=== PATIENT | female | born 1990 | race Caucasian/White ===

== ENCOUNTER 2023-03-08 07:38 | Inpatient (IN) ==
[2023-03-08] MEDS ORDERED: LIDOCAINE 1% LOCAL 20 ML VIAL INFIL PRN (09:08)
[2023-03-08] MEDS ORDERED: OXYTOCIN 30 UNITS/500 ML BAG IV PRN ×2 (09:08)
[2023-03-08] MEDS: LACTATED RINGER'S 1,000 ML IV PRN ×2 (09:47→20:08)
[2023-03-08 09:52] LABS: Hematocrit (blood only) 33.3 % (37.0-47.0); Hemoglobin 11.2 g/dl (12.0-16.0); Mean Corpuscular Hemoglobin 28.3 pg (25.0-34.0); Mean Corpuscular Hgb Conc 33.6 g/dL (32.0-36.0); Mean Corpuscular Volume 84.1 fL (80.0-100.0); Mean Platelet Volume 10.6 fL (9.4-12.4); Platelet Count 256 K/uL (130-400); RDW Coefficient of Variation 14.6 % (11.5-14.5); RDW Standard Deviation 44.6 fL (36.4-46.3); Red Blood Count 3.96 M/uL (4.20-5.40); White Blood Count 12.34 K/ul (4.8-10.8)
--- NOTE | 2023-03-08 10:06 | History & Physical Report ---
Date of Service March 08, 2023 Assessment & Plan (1) Insulin controlled gestational diabetes mellitus (GDM) during : Plan 32 yo G1 at 39 3/7 wga presents for IOL for A2GDM VSS Fetus cat 1, not many accels but this has been consistent w/ her testing in the office Labor - 35cc bahena placed after verbal consent obtained. Will start pit as well A2GDM - plan BG q2, q1 in active labor GBS neg epidural prn Admission and Anticipated Discharge Date Admission Date: March 08, 2023 History of Present Illness Chief Complaint: IOL Primary Care Provider: Emy Michael MD 32 yo G1 at 39 3/7 wga w/ NATHALIE 03/12 by US presents for IOL for A2GDM. +FM; den ies regular ctx, LOF, VB PNI: A2GDM BMI > 40 Past [employer] Hx: G1 regular cycles denies hx STIs Allergies Allergy/AdvReac Type Severity Reaction Status Date / Time No Known Allergies Allergy Verified 03/07/23 09:47 Home Medications Medication Instructions Recorded Confirmed Type Saccharomyces boulardii 250 mg 10,000 mmu cells PO DAILY 03/16/22 03/07/23 History capsule (Digest Probiotic (S.boulardii)) cetirizine 10 mg tablet (Zyrtec) 10 mg PO DAILY PRN 03/16/22 03/07/23 History omega-3 900 mg-dha 360 mg-epa 455 cap PO 03/16/22 03/07/23 History mg-fish oil 1,000 mg capsule (Fish Oil) prenat.vits,antolin,[id number] 1 tab PO DAILY 08/07/22 03/07/23 History aspirin 81 mg tablet,delayed 81 mg PO DAILY 10/01/22 03/07/23 History release (Adult Low Dose Aspirin) blood sugar diagnostic (OneTouch #150 ea 10/15/22 03/07/23 Rx Verio test strips) blood-glucose meter (OneTouch #1 ea 10/15/22 03/07/23 Rx Verio Reflect Meter) lancets 33 gauge (OneTouch Delica #150 ea 10/15/22 03/07/23 Rx Lancets) acetone (urine) test (Ketone Urine #50 ea 10/17/22 03/07/23 Rx Test strips) insulin NPH isoph U-100 human 100 10 unit (0.1 mL) subcut QPM #15 mL 10/25/22 03/07/23 Rx unit/mL (3 mL) subcutaneous pen (Novolin N FlexPen) pen needle, diabetic 32 gauge x #50 ea 10/25/22 03/07/23 Rx 5/32" (BD Ultra-Fine Brionna Pen Needle) escitalopram oxalate 20 mg tablet 20 mg PO DAILY #90 tabs 12/25/22 03/07/23 Rx (Lexapro) amoxicillin 875 mg-potassium 1 tab PO BID 10 days #20 tabs 02/05/23 03/07/23 Rx clavulanate 125 mg tablet levothyroxine 88 mcg tablet 88 mcg PO .COMPLEX #45 tabs 03/06/23 03/07/23 Rx Patient History Medical History Anxiety and depression Surgical History S/P tonsillectomy [place] teeth removed Family History Grandmother (Maternal) Breast cancer Other Brain cancer Diabetes Hypertension Kidney disease Ovarian cancer Denies family history of Lung cancer Colorectal cancer Social History Smoking Status: Never smoker Second Hand Exposure: No; Do You Dip or Chew Tobacco: No; Hx Alcohol Use: No marital status: marital status details: Doron (35) [phone] Current Living Situation: Spouse Current Living Situation Comment: lives with spouse, cats, spouse to change litter current occupational status: employed 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, 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 caffeine: Yes Dental Care, Regularly: Yes Seatbelt Use: always Sunscreen Use: Yes Physical Exam Genitourinary: OB Exam Abdomen: + vertex (confirmed by bsus) and + estimated weight (7-8) Manual OB Exam: + cervical dilation 1 cm, + cervical effacement 20% and + station -2 OB Exam Monitor Tracing: + external FHT monitor used, + external uterine monitor used (irreg ctx) and + category I (150/mod/+accel/-decel) Results & Data Vital Signs (Past 12 Hours) Vital Signs Pulse BP 03/08/23 08:02 109 H 121/77 Laboratory Results OB Labs: Blood Type AB Positive 08/31/22 Antibody Screen NEGATIVE 08/31/22 Hemoglobin 11.1 g/dl (12.0-16.0) L 12/21/22 Hematocrit 33.8 % (37.0-47.0) L 12/21/22 Mean Corpuscular Volume 86.6 fL (80.0-100.0) 08/31/22 Platelet Count 260 K/uL (130-400) 08/31/22 Rubella IgG Antibody Immune (Immune) 08/31/22 Rapid Plasma Reagin Nonreactive (Nonreactive) 08/31/22 Hepatitis B Surface Antigen. NON-REACTIVE (NON-REACTIVE) 08/31/22 Hepatitis C Antibody (EIA) NON-REACTIVE (NON-REACTIVE) 08/31/22 HIV (1&2) Ag and Ab Confirmation NON-REACTIVE (NON-REACTIVE) 08/31/22 Glucose 1 Hour 50 gm Load 153 mg/dl (70-130) H 09/21/22 Maternal Serum Alpha Fetoprotein 22.5 ng/mL 09/21/22 OB Optional Labs: Chlamydia trachomatis RNA Not Detected (NotDetected) 08/31/22 Neisseria gonorrhoeae RNA Not Detected (NotDetected) 08/31/22 Thyroid Stimulating Hormone (TSH) 0.413 uIu/ml (0.300-4.500) 12/21/22 Alpha Fetoprotein Triple Screen SEE NOTE 09/21/22 Labs Reviewed: afp neg--[facility] low risk panorama--[facility] neg cf/sma--[facility] GBS neg Diagnostic Findings 02/14 EFW 39%, DVP wnl, post plac Coding Level of Care Code None Diagnoses Insulin controlled gestational diabetes mellitus (GDM) during O24.414
[2023-03-08] MEDS ORDERED: SODIUM CHLORIDE 0.9% PF INJ 10 ML VIAL ONE (11:10)
[2023-03-08] MEDS ORDERED: ePHEDrine sulfate 50 MG/ML AMP ONE (11:10)
[2023-03-08] MEDS ORDERED: fentaNYL citrate PF 100 MCG/2 ML VIAL ONE (11:10)
[2023-03-08] MEDS ORDERED: LIDOCAINE 2%/EPINEPHRINE 1:200,000 20 ML PF ONE (11:11)
[2023-03-08] MEDS ORDERED: fentaNYL 2MCG/ML ROPIVACAINE 1.25MG/ML 100 ML BAG EPI ONE (11:11)
[2023-03-08] MEDS ORDERED: BUPIVACAINE 0.25% PF 30 ML VIAL ONE (11:11)
[2023-03-08] MEDS ORDERED: BUPIVACAINE 0.25% PF 30 ML VIAL EPI STA (11:13)
[2023-03-08] MEDS ORDERED: SODIUM CHLORIDE 0.9% PF INJ 10 ML VIAL EPI STA (11:13)
[2023-03-08] MEDS ORDERED: ePHEDrine sulfate 50 MG/ML AMP IV PRN (11:13)
[2023-03-08] MEDS ORDERED: NALOXONE HCL 0.4 MG/1 ML VIAL/CARP IV PRN (11:13)
[2023-03-08] MEDS ORDERED: diphenhydrAMINE 50 MG/ML VIAL IV PRN (11:13)
[2023-03-08] MEDS ORDERED: ROPIVACAINE 0.5% PF 5 MG/ML 20 ML VIAL EPI PRN (11:13)
[2023-03-08] MEDS ORDERED: SODIUM CHLORIDE 0.9% PF INJ 10 ML VIAL EPI PRN (11:13)
[2023-03-08] MEDS ORDERED: fentaNYL citrate PF 100 MCG/2 ML VIAL EPI STA (11:13)
[2023-03-08] MEDS ORDERED: fentaNYL citrate PF 100 MCG/2 ML VIAL EPI PRN (11:13)
[2023-03-08] MEDS ORDERED: NALBUPHINE HCL INJ 10 MG/ML AMP IV PRN (11:13)
[2023-03-08] MEDS ORDERED: NALOXONE HCL 1 MG in SODIUM CHLORIDE 0.9% 1000ML 1,000 ML IV PRN (11:13)
[2023-03-08] MEDS ORDERED: LIDOCAINE 2%/EPINEPHRINE 1:200,000 20 ML PF EPI STA (11:13)
[2023-03-08] MEDS ORDERED: BUPIVACAINE 0.25% PF 30 ML VIAL EPI PRN (11:13)
[2023-03-08] MEDS ORDERED: LIDOCAINE 2% MPF LOCAL 5 ML VIAL EPI PRN (11:13)
--- NOTE | 2023-03-08 11:13 | Anesthesiology Consultation ---
Date of Service March 08, 2023 Assessment & Plan (1) Encounter for pre-operative examination: 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: Patient NOT seen in Pre Admission Testing and Acceptable Risk for Labor Epidural Consults Requested none History Height/Weight Height: 5 ft 9 in Weight: 133.088 kg Allergies Allergy/AdvReac Type Severity Reaction Status Date / Time No Known Allergies Allergy Verified 03/07/23 09:47 Medications Home Medications Medication Instructions Recorded Confirmed Last Taken Saccharomyces boulardii 250 mg 10,000 mmu cells PO DAILY 03/16/22 03/07/23 Unknown capsule (Digest Probiotic (S.boulardii)) cetirizine 10 mg tablet (Zyrtec) 10 mg PO DAILY PRN 03/16/22 03/07/23 Unknown omega-3 900 mg-dha 360 mg-epa 455 cap PO 03/16/22 03/07/23 Unknown mg-fish oil 1,000 mg capsule (Fish Oil) prenat.vits,antolin,[id number] 1 tab PO DAILY 08/07/22 03/07/23 Unknown aspirin 81 mg tablet,delayed 81 mg PO DAILY 10/01/22 03/07/23 Unknown release (Adult Low Dose Aspirin) blood sugar diagnostic (OneTouch #150 ea 10/15/22 03/07/23 Unknown Verio test strips) blood-glucose meter (OneTouch #1 ea 10/15/22 03/07/23 Unknown Verio Reflect Meter) lancets 33 gauge (OneTouch Delica #150 ea 10/15/22 03/07/23 Unknown Lancets) acetone (urine) test (Ketone Urine #50 ea 10/17/22 03/07/23 Unknown Test strips) insulin NPH isoph U-100 human 100 10 unit (0.1 mL) subcut QPM #15 mL 10/25/22 03/07/23 Unknown unit/mL (3 mL) subcutaneous pen (Novolin N FlexPen) pen needle, diabetic 32 gauge x #50 ea 10/25/22 03/07/23 Unknown 5" (BD Ultra-Fine Brionna Pen Needle) escitalopram oxalate 20 mg tablet 20 mg PO DAILY #90 tabs 12/25/22 03/07/23 Unknown (Lexapro) amoxicillin 875 mg-potassium 1 tab PO BID 10 days #20 tabs 02/05/23 03/07/23 Unknown clavulanate 125 mg tablet levothyroxine 88 mcg tablet 88 mcg PO .COMPLEX #45 tabs 03/06/23 03/07/23 Un known Active Medications Generic Name Dose Route Start Last Admin Trade Name Zaheer PRN Reason Stop Dose Admin Oxytocin 30 units in 500 mls @ 2 mls/hr 03/08/23 09:08 03/08/23 10:02 Pitocin IV 03/10/23 09:07 0.12 units/hr .Q24H PRN 2 mls/hr Labor Induction/Augmentation Administration Protocol 0.12 UNITS/HR Lactated Ringer's 1,000 mls @ 125 mls/hr 03/08/23 09:08 03/08/23 09:47 Lr IV 03/10/23 09:07 125 mls/hr .Q8H PRN Administration L&D Protocol Protocol Past Medical History Medical History Anxiety and depression Closed left arm fracture Past Family History Family History Grandmother (Maternal) Breast cancer Other Brain cancer Diabetes Hypertension Kidney disease Ovarian cancer Denies family history of Lung cancer Colorectal cancer Past Surgical History Surgical History S/P tonsillectomy [place] teeth removed Social History Smoking Status: Never smoker Do You Dip or Chew Tobacco: No Hx Alcohol Use: No Hx Substance Use: No Physical Exam Vital Signs Last Vital Signs Temp 98.2 F 03/08/23 10:55 Pulse 109 H 03/08/23 10:55 Resp 22 03/08/23 10:55 BP 121/77 03/08/23 10:55 Testing Laboratory Results 03/08/23 09:22 03/08/23 08:52 POC Glucose 131 H
[2023-03-08] MEDS ORDERED: ACETAMINOPHEN 500 MG TAB PO PRN (18:21)
--- NOTE | 2023-03-08 18:26 | Labor Progress Brief Note ---
Date of Service March 08, 2023 Subjective comfortable w/ epidural Assessment & Plan (1) Insulin controlled gestational diabetes mellitus (GDM) during : Plan 32 yo G1 at 39 3/7 wga presents for IOL for A2GDM VSS Fetus cat 1, not many accels but this has been consistent w/ her testing in the office Labor - bahena out, pit at 18. Plan arom w/ next check A2GDM - plan BG q2, q1 in active labor. BG normalized after arrival GBS neg epidural Admission and Anticipated Discharge Date Admission Date: March 08, 2023 Physical Exam Genitourinary: Manual OB Exam: + cervical dilation 3 cm, + cervical effacement 50% and + station -2 OB Exam Monitor Tracing: + external FHT monitor used, + external uterine monitor used (q2-3) and + category I (145/mod/+accel/-decel) Results & Data Vital Signs (Past 12 Hours) Vital Signs Temp Pulse Resp BP Pulse Ox 03/08/23 18:16 112 H 127/78 03/08/23 18:00 110 H 143/73 H 03/08/23 17:45 101 H 130/68 03/08/23 17:30 103 H 128/61 03/08/23 17:22 18 03/08/23 17:22 98.4 F 18 03/08/23 17:14 100 H 134/67 03/08/23 17:00 100 H 129/59 L 03/08/23 16:44 97 H 123/65 03/08/23 16:30 105 H 128/65 03/08/23 16:15 108 H 134/67 03/08/23 16:01 107 H 138/83 03/08/23 15:45 107 H 140/85 03/08/23 15:30 116 H 136/75 03/08/23 15:14 109 H 141/82 H 03/08/23 15:00 106 H 144/86 H 03/08/23 14:49 107 H 139/81 03/08/23 14:40 104 H 97 03/08/23 14:39 107 H 93 03/08/23 14:35 106 H 93 03/08/23 14:34 107 H 94 03/08/23 14:30 114 H 95 03/08/23 14:29 108 H 127/70 03/08/23 14:26 106 H 93 03/08/23 14:25 109 H 97 03/08/23 14:20 117 H 98 03/08/23 14:15 103 H 97 03/08/23 14:10 102 H 97 03/08/23 14:05 95 H 98 03/08/23 14:00 97 H 123/57 L 99 03/08/23 13:55 98 H 97 03/08/23 13:50 99 H 97 03/08/23 13:45 101 H 98 03/08/23 13:44 97 H 116/61 03/08/23 13:40 96 H 96 03/08/23 13:35 104 H 99 03/08/23 13:30 97 H 98 03/08/23 13:31 96 H 111/55 L 03/08/23 13:25 102 H 97 03/08/23 13:20 99 H 98 03/08/23 13:15 102 H 99 03/08/23 13:14 100 H 98/53 L 03/08/23 13:10 102 H 96 03/08/23 13:05 101 H 97 03/08/23 13:00 101 H 93/53 L 97 03/08/23 12:55 105 H 99 03/08/23 12:50 102 H 98 03/08/23 12:45 103 H 99 03/08/23 12:40 102 H 99 03/08/23 12:35 101 H 99 03/08/23 12:30 106 H 98 03/08/23 12:25 106 H 100 03/08/23 12:24 100 H 136/68 03/08/23 12:20 103 H 99 03/08/23 12:15 101 H 98 03/08/23 12:13 100 H 144/74 H 03/08/23 12:10 100 H 99 03/08/23 12:05 98 H 100 03/08/23 12:03 96 H 136/68 03/08/23 12:00 103 H 97 03/08/23 12:01 100 H 149/71 H 03/08/23 11:59 100 H 146/80 H 03/08/23 11:57 107 H 143/83 H 03/08/23 11:55 100 03/08/23 11:55 99 H 03/08/23 11:55 103 H 143/84 H 03/08/23 11:53 105 H 147/88 H 03/08/23 11:50 104 H 100 03/08/23 11:51 101 H 149/86 H 03/08/23 11:49 113 H 140/83 03/08/23 11:47 106 H 147/86 H 03/08/23 11:45 100 03/08/23 11:45 104 H 03/08/23 11:45 103 H 148/90 H 03/08/23 11:43 109 H 137/87 03/08/23 11:41 107 H 139/87 03/08/23 11:40 109 H 100 03/08/23 11:39 120 H 144/86 H 03/08/23 11:35 107 H 100 03/08/23 11:30 109 H 100 03/08/23 11:25 118 H 100 03/08/23 08:02 109 H 121/77 03/08/23 10:55 98.2 F 109 H 22 121/77 Coding Level of Care Code None Diagnoses Insulin controlled gestational diabetes mellitus (GDM) during O24.414
[2023-03-08] MEDS: fentaNYL 2MCG/ML ROPIVACAINE 1.25MG/ML 100 ML BAG EPI PRN (19:40)
--- NOTE | 2023-03-08 22:38 | Labor Progress Brief Note ---
Date of Service March 08, 2023 Subjective comfortable w/ epidural Assessment & Plan (1) Insulin controlled gestational diabetes mellitus (GDM) during : Plan 32 yo G1 at 39 3/7 wga presents for IOL for A2GDM VSS Fetus cat 1, not many accels but this has been consistent w/ her testing in the office Labor - pit at 20, iupc placed for more accurate monitoring and guidance A2GDM - plan BG q2, q1 in active labor. BG normalized after arrival GBS neg epidural in place Admission and Anticipated Discharge Date Admission Date: March 08, 2023 Physical Exam Genitourinary: Manual OB Exam: + cervical dilation 3 cm, + cervical effacement 50%, + station -2 and + amniotic fluid (arom ) meconium OB Exam Monitor Tracing: + external FHT monitor used, + intra-uterine pressure catheter used (placed) and + category I (145/mod/+accel/-decel) Results & Data Vital Signs (Past 12 Hours) Vital Signs Temp Pulse Resp BP Pulse Ox 03/08/23 22:29 101 H 113/56 L 03/08/23 22:14 109 H 121/78 03/08/23 21:59 114 H 129/72 03/08/23 21:58 18 03/08/23 21:58 98.4 F 18 03/08/23 21:44 115 H 131/68 03/08/23 21:29 112 H 130/65 03/08/23 21:14 110 H 130/71 03/08/23 20:59 106 H 126/70 03/08/23 20:44 107 H 134/73 03/08/23 20:29 95 H 123/70 03/08/23 20:15 99 H 121/60 03/08/23 20:00 99 H 131/67 03/08/23 19:44 107 H 143/76 H 03/08/23 19:30 115 H 144/82 H 03/08/23 19:15 115 H 136/80 03/08/23 18:59 114 H 139/76 03/08/23 18:45 113 H 136/74 03/08/23 18:31 108 H 139/84 03/08/23 18:16 112 H 127/78 03/08/23 18:00 110 H 143/73 H 03/08/23 17:45 101 H 130/68 03/08/23 17:30 103 H 128/61 03/08/23 17:22 18 03/08/23 17:22 98.4 F 18 03/08/23 17:14 100 H 134/67 03/08/23 17:00 100 H 129/59 L 03/08/23 16:44 97 H 123/65 03/08/23 16:30 105 H 128/65 03/08/23 16:15 108 H 134/67 03/08/23 16:01 107 H 138/83 03/08/23 15:45 107 H 140/85 03/08/23 15:30 116 H 136/75 03/08/23 15:14 109 H 141/82 H 03/08/23 15:00 106 H 144/86 H 03/08/23 14:49 107 H 139/81 03/08/23 14:40 104 H 97 03/08/23 14:39 107 H 93 03/08/23 14:35 106 H 93 03/08/23 14:34 107 H 94 03/08/23 14:30 114 H 95 03/08/23 14:29 108 H 127/70 03/08/23 14:26 106 H 93 03/08/23 14:25 109 H 97 03/08/23 14:20 117 H 98 03/08/23 14:15 103 H 97 03/08/23 14:10 102 H 97 03/08/23 14:05 95 H 98 03/08/23 14:00 97 H 123/57 L 99 03/08/23 13:55 98 H 97 03/08/23 13:50 99 H 97 03/08/23 13:45 101 H 98 03/08/23 13:44 97 H 116/61 03/08/23 13:40 96 H 96 03/08/23 13:35 104 H 99 03/08/23 13:30 97 H 98 03/08/23 13:31 96 H 111/55 L 03/08/23 13:25 102 H 97 03/08/23 13:20 99 H 98 03/08/23 13:15 102 H 99 03/08/23 13:14 100 H 98/53 L 03/08/23 13:10 102 H 96 03/08/23 13:05 101 H 97 03/08/23 13:00 101 H 93/53 L 97 03/08/23 12:55 105 H 99 03/08/23 12:50 102 H 98 03/08/23 12:45 103 H 99 03/08/23 12:40 102 H 99 03/08/23 12:35 101 H 99 03/08/23 12:30 106 H 98 03/08/23 12:25 106 H 100 03/08/23 12:24 100 H 136/68 03/08/23 12:20 103 H 99 03/08/23 12:15 101 H 98 03/08/23 12:13 100 H 144/74 H 03/08/23 12:10 100 H 99 03/08/23 12:05 98 H 100 03/08/23 12:03 96 H 136/68 03/08/23 12:00 103 H 97 03/08/23 12:01 100 H 149/71 H 03/08/23 11:59 100 H 146/80 H 03/08/23 11:57 107 H 143/83 H 03/08/23 11:55 100 03/08/23 11:55 99 H 03/08/23 11:55 103 H 143/84 H 03/08/23 11:53 105 H 147/88 H 03/08/23 11:50 104 H 100 03/08/23 11:51 101 H 149/86 H 03/08/23 11:49 113 H 140/83 03/08/23 11:47 106 H 147/86 H 03/08/23 11:45 100 03/08/23 11:45 104 H 03/08/23 11:45 103 H 148/90 H 03/08/23 11:43 109 H 137/87 03/08/23 11:41 107 H 139/87 03/08/23 11:40 109 H 100 03/08/23 11:39 120 H 144/86 H 03/08/23 11:35 107 H 100 03/08/23 11:30 109 H 100 03/08/23 11:25 118 H 100 03/08/23 10:55 98.2 F 109 H 22 121/77 Coding Level of Care Code None Diagnoses Insulin controlled gestational diabetes mellitus (GDM) during O24.414
[2023-03-09] MEDS: LACTATED RINGER'S 1,000 ML IV PRN ×2 (03:42→10:41)
[2023-03-09] MEDS: fentaNYL 2MCG/ML ROPIVACAINE 1.25MG/ML 100 ML BAG EPI PRN ×2 (03:43→10:37)
[2023-03-09] MEDS ORDERED: ceFAZolin 3,000 MG in DEXTROSE 5% 50 ML IV SCH (06:00)
[2023-03-09] MEDS ORDERED: NURSING L&D Epidural Breakthrough Pain Update ONE (06:58)
[2023-03-09] MEDS: ESCITALOPRAM OXALATE 20 MG TAB PO SCH (08:23)
[2023-03-09] MEDS: LEVOTHYROXINE SODIUM 88 MCG TABLET PO SCH (08:38)
--- NOTE | 2023-03-09 10:29 | Labor Progress Brief Note ---
Date of Service March 09, 2023 Subjective Delayed entry. Care of patient assumed at 0830. A2GDM/Class 3 obesity for IOL at 39+wks. Ruptured, on pitocin, and has epidural, with IUPC already in place and MVU not yet adequate at the time I assumed her care. Discussed recheck of cervix at that time and agreed to defer as no likely change to management regardless of results. Assessment & Plan (1) Insulin controlled gestational diabetes mellitus (GDM) during : Plan: IOL continues. Titrate pitocin for adequate MVU then reassess for progress. Admission and Anticipated Discharge Date Admission Date: March 08, 2023 Physical Exam Genitourinary: FHT Cat 1 [place] Q4. Results & Data Vital Signs (Past 12 Hours) Vital Signs Temp Pulse Resp BP 03/09/23 10:15 113 H 136/72 03/09/23 10:00 113 H 137/70 03/09/23 09:45 109 H 137/72 03/09/23 09:30 18 03/09/23 09:30 18 03/09/23 09:29 106 H 137/71 03/09/23 09:15 107 H 134/72 03/09/23 09:00 16 03/09/23 09:00 16 03/09/23 08:10 98.4 F 03/09/23 08:59 109 H 141/71 H 03/09/23 08:45 114 H 137/72 03/09/23 08:30 111 H 18 140/73 03/09/23 08:00 16 03/09/23 08:00 16 03/09/23 08:15 112 H 132/69 03/09/23 07:59 113 H 133/74 03/09/23 07:44 111 H 128/75 03/09/23 07:00 18 03/09/23 07:00 18 03/09/23 07:31 123 H 134/84 03/09/23 07:14 110 H 118/59 L 03/09/23 06:59 106 H 127/64 03/09/23 06:10 97.9 F 03/09/23 06:30 18 03/09/23 06:30 18 03/09/23 06:46 100 H 126/61 03/09/23 06:29 109 H 115/59 L 03/09/23 06:14 107 H 110/61 03/09/23 05:59 103 H 110/56 L 03/09/23 05:00 18 03/09/23 05:00 98.1 F 18 03/09/23 05:29 113 H 134/71 03/09/23 04:30 18 03/09/23 04:30 18 03/09/23 05:14 121 H 125/74 03/09/23 04:59 120 H 132/75 03/09/23 04:44 113 H 132/77 03/09/23 04:29 117 H 130/79 03/09/23 04:14 116 H 136/76 03/09/23 04:00 18 03/09/23 04:00 18 03/09/23 03:30 18 03/09/23 03:30 18 03/09/23 03:59 112 H 134/77 03/09/23 03:00 18 03/09/23 03:00 18 03/09/23 03:44 115 H 107/65 03/09/23 03:29 111 H 100/58 L 03/09/23 03:16 108 H 104/56 L 03/09/23 02:59 108 H 107/55 L 03/09/23 02:45 111 H 106/55 L 03/09/23 02:00 18 03/09/23 02:00 18 03/09/23 02:30 108 H 18 104/58 L 03/09/23 02:14 110 H 110/58 L 03/09/23 02:01 105 H 103/57 L 03/09/23 01:45 115 H 99/56 L 03/09/23 01:30 108 H 18 108/55 L 03/09/23 01:16 104 H 105/59 L 03/09/23 01:00 98.1 F 118 H 18 114/59 L 03/09/23 00:46 115 H 122/68 03/09/23 00:30 117 H 18 128/68 03/09/23 00:00 18 03/09/23 00:00 18 03/09/23 00:14 114 H 131/71 03/09/23 00:01 111 H 130/72 03/08/23 23:45 106 H 128/70 03/08/23 23:30 111 H 18 122/76 03/08/23 23:14 101 H 110/56 L 03/08/23 22:59 102 H 107/57 L 03/08/23 22:44 99 H 111/55 L 03/08/23 22:29 101 H 113/56 L Coding Level of Care Code None Diagnoses Insulin controlled gestational diabetes mellitus (GDM) during O24.414
[2023-03-09] MEDS ORDERED: CITRIC ACID/SODIUM CITRATE 15 ML UDC ONE (13:27)
--- NOTE | 2023-03-09 13:47 | Labor Progress Brief Note ---
Date of Service March 09, 2023 Subjective I visited Kasey just a short while ago. She had requested some broth and to sit upright, as she was feeling hungry/thirsty, and was tired of laying down as it had been over 24 hours of being in bed already. I rechecked her cervix, which had made no change, and asked her to discuss with me whether she was sure she wanted to continue to labor before eating/drinking. We discussed the default plan would be to continue pitocin and IUPC as she had not yet reached adequate contractions. However, she had been expressing frustration with the long time in bed and slow progress, so I wanted to be sure to communicate about her goals before committing to a plan or putting significant volume in her stomach. She asked if she could "vent" a bit and I pulled up a chair to listen. Kasey shared a lot of frustration that she has been feeling about the process of this . She had been hoping for a natural labor and a vaginal delivery, following a healthy gestation. Instead, however, she's had difficulty from early on with a diagnosis of GDM at 16wk, anatomy scan being done at [facility] due to her BMI, and a general experience of being counseled throughout about her particular risks and a lot of focus on what could go wrong. She understands the realities of those risks, but notes with some sadness that the focus on risk felt exclusive, and there hadn't really been focus on maternal risk, nor on the emotional impact this was having and how much blame she was internalizing, or on the application of population-wide guidelines to the individual woman and her . Ultimately she notes she was recommended for induction and that the way this was communicated left her feeling that it had been something of a soft call or a conservative step, and she really did not want to have an induction but had agreed for the good of her baby. She realizes that the outcome of her labor may have been the same whether she was induced vs labored spontaneously, but notes that much of what she saw when googling this process suggested to her that agreeing to induction and epidural - both of which she planned to avoid - might be why she is only 3cm now and feeling like it is inevitable she will require a in the end. Empathy provided, and I apologized for the way in which her course has been negatively affecting her during the . Counseled that while we can't control the route of delivery that ultimately occurs (some babies simply cannot be safely born vaginally), we can control the choices we make throughout the rest of her delivery process, such that she can look back on this with a degree of emotional fulfillment and satisfaction that she did what felt right to her. The option exists to move to now, noting an unsuccessful induction that never reached adequate MVU after 24 hours of effort and never reached the active phase of cervical dilation either. While this won't really "prove" CPD, it acknowledges the efforts made to this point and does not add further [id number] risk or bedbound time. It gets her to the of a baby which is currently healthy, and does so without taking more maternal time and energy or further prolonged pitocin exposure. The option also exists to push forward to adequate MVU or maximum safe pitocin levels, which could require up to 3+ more hours of interval pitocin dose increases plus 6 hours of documented adequate MVU or max levels, and attempt to either achieve cervical change or document standardized failure to progress. That costs her time in bed, increased use of pitocin with associated risks of hemorrhage and fluid retention, and may or may not increase her chances of vaginal delivery, but would offer her the knowledge in the future that she had tried to maximize the available induction agents. All questions were answered of patient and FOB, who were given time to discuss. She then notified us she wanted to move to . Assessment & Plan (1) Insulin controlled gestational diabetes mellitus (GDM) during : Plan: Plan for section due to failed induction of labor. Never obtained 6 hours adequate MVU and never dilated past 3cm, but has been in process for 24 hours and does not wish to continue. FHT intermittently Cat 1 / Cat 2 but currently reassuring. Will proceed as soon as anesthesia service able to accom modate this nonemergent procedure considering their concurrent caseload. Admission and Anticipated Discharge Date Admission Date: March 08, 2023 Results & Data Vital Signs (Past 12 Hours) Vital Signs Temp Pulse Resp BP 03/09/23 12:59 125 H 134/80 03/09/23 12:46 122 H 118/82 03/09/23 12:31 127 H 112/77 03/09/23 10:10 97.9 F 03/09/23 12:10 98.4 F 03/09/23 12:14 134 H 134/79 03/09/23 12:00 117 H 16 134/75 03/09/23 11:45 112 H 139/74 03/09/23 11:30 18 03/09/23 11:30 18 03/09/23 11:29 116 H 139/74 03/09/23 11:16 109 H 139/71 03/09/23 11:01 106 H 139/73 03/09/23 10:45 111 H 145/76 H 03/09/23 10:30 115 H 138/68 03/09/23 10:15 113 H 136/72 03/09/23 10:00 113 H 137/70 03/09/23 09:45 109 H 137/72 03/09/23 09:30 18 03/09/23 09:30 18 03/09/23 09:29 106 H 137/71 03/09/23 09:15 107 H 134/72 03/09/23 09:00 16 03/09/23 09:00 16 03/09/23 08:10 98.4 F 03/09/23 08:59 109 H 141/71 H 03/09/23 08:45 114 H 137/72 03/09/23 08:30 111 H 18 140/73 03/09/23 08:00 16 03/09/23 08:00 16 03/09/23 08:15 112 H 132/69 03/09/23 07:59 113 H 133/74 03/09/23 07:44 111 H 128/75 03/09/23 07:00 18 03/09/23 07:00 18 03/09/23 07:31 123 H 134/84 03/09/23 07:14 110 H 118/59 L 03/09/23 06:59 106 H 127/64 03/09/23 06:10 97.9 F 03/09/23 06:30 18 03/09/23 06:30 18 03/09/23 06:46 100 H 126/61 03/09/23 06:29 109 H 115/59 L 03/09/23 06:14 107 H 110/61 03/09/23 05:59 103 H 110/56 L 03/09/23 05:00 18 03/09/23 05:00 98.1 F 18 03/09/23 05:29 113 H 134/71 03/09/23 04:30 18 03/09/23 04:30 18 03/09/23 05:14 121 H 125/74 03/09/23 04:59 120 H 132/75 03/09/23 04:44 113 H 132/77 03/09/23 04:29 117 H 130/79 03/09/23 04:14 116 H 136/76 03/09/23 04:00 18 03/09/23 04:00 18 03/09/23 03:30 18 03/09/23 03:30 18 03/09/23 03:59 112 H 134/77 03/09/23 03:00 18 03/09/23 03:00 03/09/23 03:44 115 H 107/65 03/09/23 03:29 111 H 100/58 L 03/09/23 03:16 108 H 104/56 L 03/09/23 02:59 108 H 107/55 L 03/09/23 02:45 111 H 106/55 L 03/09/23 02:00 18 03/09/23 02:00 18 03/09/23 02:30 108 H 18 104/58 L 03/09/23 02:14 110 H 110/58 L 03/09/23 02:01 105 H 103/57 L 03/09/23 01:45 115 H 99/56 L 03/09/23 01:30 108 H 18 108/55 L 03/09/23 01:16 104 H 105/59 L Coding Level of Care Code None Diagnoses Insulin controlled gestational diabetes mellitus (GDM) during O24.414
[2023-03-09 14:04] LABS: Basophils # (auto) 0.03 K/uL (0-0.2); Basophils % (auto) 0.2 %; Eosinophils # (auto) 0.01 K/uL (0-0.50); Eosinophils % (auto) 0.1 %; Hemoglobin 11.1 g/dl (12.0-16.0); Immature Granulocytes # (auto) 0.13 K/uL (0.01-0.20); Immature Granulocytes % (auto) 0.7 %; Lymphocytes # (auto) 1.03 K/uL (1.2-3.4); Lymphocytes % (auto) 5.4 %; Mean Corpuscular Hemoglobin 28.5 pg (25.0-34.0); Mean Corpuscular Hgb Conc 33.6 g/dL (32.0-36.0); Mean Corpuscular Volume 84.8 fL (80.0-100.0); Mean Platelet Volume 10.8 fL (9.4-12.4); Monocytes % (auto) 7.8 %; Neutrophils # (auto) 16.52 K/uL (1.40-6.50); Neutrophils % (auto) 85.8 %; Platelet Count 231 K/uL (130-400); RDW Coefficient of Variation 14.7 % (11.5-14.5); RDW Standard Deviation 44.9 fL (36.4-46.3); Red Blood Count 3.89 M/uL (4.20-5.40); White Blood Count 19.22 K/ul (4.8-10.8)
[2023-03-09] MEDS ORDERED: LIDOCAINE 2%/EPINEPHRINE 1:200,000 20 ML PF ONE (14:33)
[2023-03-09] MEDS ORDERED: fentaNYL citrate PF 100 MCG/2 ML VIAL ONE (14:33)
[2023-03-09] MEDS ORDERED: OXYTOCIN 10 UNITS/ML VIAL ONE ×2 (14:33→15:50)
[2023-03-09] MEDS ORDERED: MoRPHine SULFATE PF 1 MG/ML 10 ML AMP/VIAL ONE (15:12)
[2023-03-09] MEDS ORDERED: ONDANSETRON INJ 2 MG/ML 2 ML VIAL ONE (15:22)
[2023-03-09] MEDS ORDERED: PHENYLEPHRINE 100MCG/ML 5ML SYR ONE (15:26)
[2023-03-09] MEDS ORDERED: MIDAZOLAM HCL 1 MG/ML 2ML VIAL ONE (15:46)
[2023-03-09] MEDS ORDERED: HYDROCORTISONE ACETATE 25 MG SUPP PR PRN (15:57)
[2023-03-09] MEDS ORDERED: DIPHTHERIA/TETANUS/PERTUSSIS Vaccine (Tdap, Age 7+yrs) 0.5mL SYR/VL IM ONE (15:57)
[2023-03-09] MEDS ORDERED: SENNA 8.6 MG TAB PO PRN (15:57)
[2023-03-09] MEDS ORDERED: BENZOCAINE 20% AER SPR 82.5 GM CAN EXT PRN (15:57)
[2023-03-09] MEDS ORDERED: MAGNESIUM HYDROXIDE SUSP 30 ML UDC PO PRN (15:57)
[2023-03-09] MEDS ORDERED: ONDANSETRON INJ 2 MG/ML 2 ML VIAL IV PRN ×2 (15:57→16:05)
[2023-03-09] MEDS ORDERED: LACTATED RINGER'S 1,000 ML IV SCH (16:00)
--- NOTE | 2023-03-09 16:02 | Operative Report ---
PG Post Operative Report Pre & Post Diagnosis Operation Date: 03/09/23 15:00 Pre-Op Diagnosis: FAILED INDUCTION A2GDM Obesity Post-Op Diagnosis: Same I identified the patient and participated in the time-out.: Yes Procedure Operation Date: 03/09/23 15:00 Actual Procedures Primary Low Transverse Section Surgeon Elosia Matias MD Crystal Syrup Maker Jennifer Ornelas RN Estimated Blood Loss 700 Findings Consistent with Post-Op Diagnosis Specimens Placenta, cord blood Anesthesia Type L&D Only Epidural Exists Complications none Disposition Accompanied Patient To Recovery: Yes Disposition: L&D Description of Procedure The patient was placed operating table in the supine position with a leftward tilt. She was prepped and draped in standard sterile fashion. The anesthetic was tested and found to be adequate. A time-out was held, identifying correct patient, procedure, positioning and preoperative antibiotics. There were no concerns. A Pfannenstiel skin incision was made with a knife and taken down to the underlying layer of fascia. The fascia was incised in the midline with the knife and taken out laterally with scissors. The superior edge of the fascial incision was grasped, elevated and dissected off the underlying rectus both superiorly and inferiorly. The muscles were bluntly in the midline. The peritoneum was entered bluntly. The incision was then stretched. An extra large Miguel Ángel retractor was placed. The bladder retractor was placed. The vesicouterine peritoneum was identified, entered with scissors and taken out laterally with scissors. The bladder flap was created digitally. A hysterotomy incision was created transversely in the lower uterine segment, final entry being accomplished in a blunt manner with the dumper bailer operator's fingers. Clear amniotic fluid was encountered. The dumper bailer operator's hand was used to elevate the head to the hysterotomy. The head was delivered using mild fundal pressure, and the shoulders and body followed without difficulty. The cord was clamped and cut and the infant was then handed off to the awaiting land conservation specialist. Cord blood was obtained. The placenta was Manually extracted. The uterus was exteriorized and cleared of all clot and debris with moistened laparotomy sponges. The hysterotomy incision was repaired in two layers, the first in a running locked layer, the second in an imbricating layer. The ovaries and tubes were seen to be normal bilaterally. The uterus was gently replaced in the abdomen, and the gutters were cleared of clot and debris. A final inspection of the hysterotomy revealed good hemostas is. The Miguel Ángel retractor was removed. The rectus muscles were allowed to reapproximate naturally. The fascia was then reapproximated with 1 Vicryl in a running nonlocked manner. The fascia was examined and found to be free of defect following closure. The subcutaneous tissue was copiously irrigated and reapproximated with 0-chromic, then the skin edges were closed with 4-0 monocryl in a subcuticular fashion. A dermabond dressing was applied. The bahena was found to be draining clear yellow urine at completion of the procedure. I attest to the content of the Intraoperative Record and any orders documented therein. Any exceptions are noted below. I attest to the content of the Intraoperative Record and any orders documented therein. Any exceptions are noted below. OB Procedure Charges 32031
[2023-03-09] MEDS ORDERED: NALOXONE HCL 0.08 MG in SYRINGE 1.8 ML IV PRN (16:05)
[2023-03-09] MEDS ORDERED: NALBUPHINE HCL INJ 10 MG/ML AMP IV PRN (16:05)
[2023-03-09] MEDS ORDERED: diphenhydrAMINE 50 MG/ML VIAL IV PRN (16:05)
[2023-03-09] MEDS ORDERED: NALOXONE HCL 0.4 MG/1 ML VIAL/CARP IV PRN (16:05)
[2023-03-09] MEDS ORDERED: PROMETHAZINE HCL 25 MG in SODIUM CHLORIDE 0.9% 50 ML IV PRN (16:05)
[2023-03-09] MEDS ORDERED: LACTATED RINGER'S 500 ML IV PRN (16:05)
[2023-03-09] MEDS ORDERED: NALOXONE HCL 1 MG in SODIUM CHLORIDE 0.9% 1000ML 1,000 ML IV PRN (16:05)
[2023-03-09] MEDS ORDERED: ePHEDrine sulfate 50 MG/ML AMP IV PRN (16:05)
[2023-03-09] MEDS ORDERED: MoRPHine SULFATE PF 1 MG/ML 10 ML AMP/VIAL EPI ONE (16:05)
--- NOTE | 2023-03-09 16:12 | Anesthesia Procedure Note ---
Date of Service March 09, 2023 Anesthesia Post Epidural Note Vital Signs Vital Signs: Temp Pulse Resp BP Pulse Ox 36.9 C 152 H 18 112/67 94 03/09/23 12:10 03/09/23 16:08 03/09/23 14:30 03/09/23 16:04 03/09/23 16:08 Pain Intensity Abdomen: Pain Intensity: 2 Notes Mental Status: alert / awake / arousable Nausea / Vomiting: adequately controlled Pain: adequately controlled Airway Patency, RR, SpO2: stable & adequate BP & HR: stable & adequate Hydration State: stable & adequate Neuraxial Anesthesia: was administered and sensory block is resolving Anesthetic Complications: no major complications apparent Epidural: Removed without complications and With tip intact
[2023-03-09] MEDS ORDERED: NO NARCOTICS OR SEDATIVES SCH (16:15)
[2023-03-09] MEDS ORDERED: SODIUM CHLORIDE 0.9% 1000ML 1,000 ML IV SCH (16:15)
[2023-03-09] MEDS ORDERED: DC INTRASPINAL MORPHINE SCH (16:15)
--- NOTE | 2023-03-09 16:39 | Anesthesiology Progress Note ---
Date of Service March 09, 2023 Anesthesia Post Procedure Vital Signs Vital Signs: Temp Pulse Pulse Resp BP BP Pulse Ox 03/09/23 16:30 18 03/09/23 16:20 16 03/09/23 16:10 38.3 C H 140 H 18 112/67 94 03/09/23 16:10 38.3 C H 140 H 18 112/67 94 03/08/23 22:15 36.9 C 18 03/09/23 16:34 133 H 94 03/09/23 16:33 133 H 93 03/09/23 16:29 138 H 97 03/09/23 16:26 132 H 93 03/09/23 16:24 134 H 99 03/09/23 16:19 136 H 96 03/09/23 16:15 145 H 93 03/09/23 16:14 136 H 96 03/09/23 16:09 145 H 97 03/09/23 16:08 152 H 94 03/09/23 16:03 140 H 97 03/09/23 16:04 137 H 112/67 03/09/23 14:52 162 H 144/80 H 03/09/23 14:45 126 H 149/72 H 03/09/23 14:44 123 H 149/84 H 03/09/23 14:30 18 03/09/23 14:30 18 03/09/23 14:29 121 H 146/82 H 03/09/23 14:14 115 H 140/81 03/09/23 14:00 16 03/09/23 14:00 16 03/09/23 13:44 115 H 142/64 H 03/09/23 12:30 16 03/09/23 12:30 16 03/09/23 13:00 16 03/09/23 13:00 16 03/09/23 13:30 16 03/09/23 13:30 16 03/09/23 13:15 125 H 140/80 03/09/23 12:59 125 H 134/80 03/09/23 12:46 122 H 118/82 03/09/23 12:31 127 H 112/77 03/09/23 10:10 36.6 C 03/09/23 12:10 36.9 C 03/09/23 12:14 134 H 134/79 03/09/23 12:00 117 H 16 134/75 03/09/23 11:45 112 H 139/74 03/09/23 11:30 18 03/09/23 11:30 18 03/09/23 11:29 116 H 139/74 03/09/23 11:16 109 H 139/71 03/09/23 11:01 106 H 139/73 03/09/23 10:45 111 H 145/76 H 03/09/23 10:30 115 H 138/68 03/09/23 10:15 113 H 136/72 03/09/23 10:00 113 H 137/70 03/09/23 09:45 109 H 137/72 03/09/23 09:30 18 03/09/23 09:30 18 03/09/23 09:29 106 H 137/71 03/09/23 09:15 107 H 134/72 03/09/23 09:00 16 03/09/23 09:00 16 03/09/23 08:10 36.9 C 03/09/23 08:59 109 H 141/71 H 03/09/23 08:45 114 H 137/72 03/09/23 08:30 111 H 18 140/73 03/09/23 08:00 16 03/09/23 08:00 16 03/09/23 08:15 112 H 132/69 03/09/23 07:59 113 H 133/74 03/09/23 07:44 111 H 128/75 03/09/23 07:00 18 03/09/23 07:00 18 03/09/23 07:31 123 H 134/84 03/09/23 07:14 110 H 118/59 L 03/09/23 06:59 106 H 127/64 03/09/23 06:10 36.6 C 03/09/23 06:30 18 03/09/23 06:30 18 03/09/23 06:46 100 H 126/61 03/09/23 06:29 109 H 115/59 L 03/09/23 06:14 107 H 110/61 03/09/23 05:59 103 H 110/56 L 03/09/23 05:00 18 03/09/23 05:00 36.7 C 18 03/09/23 05:29 113 H 134/71 03/09/23 04:30 18 03/09/23 04:30 18 07/15/23 05:14 121 H 125/74 03/09/23 04:59 120 H 132/75 03/09/23 04:44 113 H 132/77 03/09/23 04:29 117 H 130/79 03/09/23 04:14 116 H 136/76 03/09/23 04:00 18 03/09/23 04:00 18 03/09/23 03:30 18 03/09/23 03:30 18 03/09/23 03:59 112 H 134/77 03/09/23 03:00 18 03/09/23 03:00 18 03/09/23 03:44 115 H 107/65 03/09/23 03:29 111 H 100/58 L 03/09/23 03:16 108 H 104/56 L 03/09/23 02:59 108 H 107/55 L 03/09/23 02:45 111 H 106/55 L 03/09/23 02:00 18 03/09/23 02:00 18 03/09/23 02:30 108 H 18 104/58 L 03/09/23 02:14 110 H 110/58 L 03/09/23 02:01 105 H 103/57 L 03/09/23 01:45 115 H 99/56 L 03/09/23 01:30 108 H 18 108/55 L 03/09/23 01:16 104 H 105/59 L 03/09/23 01:00 36.7 C 118 H 18 114/59 L 03/09/23 00:46 115 H 122/68 03/09/23 00:30 117 H 18 128/68 03/09/23 00:00 18 03/09/23 00:00 18 03/09/23 00:14 114 H 131/71 03/09/23 00:01 111 H 130/72 03/08/23 23:45 106 H 128/70 03/08/23 23:30 111 H 18 122/76 03/08/23 23:14 101 H 110/56 L 03/08/23 22:59 102 H 107/57 L 03/08/23 22:15 18 03/08/23 22:15 36.9 C 18 03/08/23 22:44 99 H 111/55 L 03/08/23 22:29 101 H 113/56 L 07/14/23 22:14 109 H 121/78 03/08/23 21:59 114 H 129/72 03/08/23 21:58 18 03/08/23 21:58 36.9 C 18 03/08/23 21:44 115 H 131/68 03/08/23 21:29 112 H 130/65 03/08/23 21:14 110 H 130/71 03/08/23 20:59 106 H 126/70 03/08/23 20:44 107 H 134/73 03/08/23 20:29 95 H 123/70 03/08/23 20:15 99 H 121/60 03/08/23 20:00 99 H 131/67 03/08/23 19:44 107 H 143/76 H 03/08/23 19:30 115 H 144/82 H 03/08/23 19:15 115 H 136/80 03/08/23 18:59 114 H 139/76 03/08/23 18:45 113 H 136/74 03/08/23 18:31 108 H 139/84 03/08/23 18:16 112 H 127/78 03/08/23 18:00 110 H 143/73 H 03/08/23 17:45 101 H 130/68 03/08/23 17:30 103 H 128/61 03/08/23 17:22 18 03/08/23 17:22 36.9 C 18 03/08/23 17:14 100 H 134/67 03/08/23 17:00 100 H 129/59 L 03/08/23 16:44 97 H 123/65 O2 Del Method 03/09/23 16:30 03/09/23 16:20 03/09/23 16:10 03/09/23 16:10 Room Air 03/08/23 22:15 03/09/23 16:34 03/09/23 16:33 03/09/23 16:29 03/09/23 16:26 03/09/23 16:24 03/09/23 16:19 03/09/23 16:15 03/09/23 16:14 03/09/23 16:09 03/09/23 16:08 03/09/23 16:03 03/09/23 16:04 03/09/23 14:52 03/09/23 14:45 03/09/23 14:44 03/09/23 14:30 03/09/23 14:30 03/09/23 14:29 03/09/23 14:14 03/09/23 14:00 03/09/23 14:00 03/09/23 13:44 03/09/23 12:30 03/09/23 12:30 03/09/23 13:00 03/09/23 13:00 03/09/23 13:30 03/09/23 13:30 03/09/23 13:15 03/09/23 12:59 03/09/23 12:46 03/09/23 12:31 03/09/23 10:10 03/09/23 12:10 03/09/23 12:14 03/09/23 12:00 03/09/23 11:45 03/09/23 11:30 03/09/23 11:30 03/09/23 11:29 03/09/23 11:16 03/09/23 11:01 03/09/23 10:45 03/09/23 10:30 03/09/23 10:15 03/09/23 10:00 03/09/23 09:45 03/09/23 09:30 03/09/23 09:30 03/09/23 09:29 03/09/23 09:15 03/09/23 09:00 03/09/23 09:00 03/09/23 08:10 03/09/23 08:59 03/09/23 08:45 03/09/23 08:30 03/09/23 08:00 03/09/23 08:00 03/09/23 08:15 03/09/23 07:59 03/09/23 07:44 03/09/23 07:00 03/09/23 07:00 03/09/23 07:31 03/09/23 07:14 03/09/23 06:59 03/09/23 06:10 03/09/23 06:30 03/09/23 06:30 03/09/23 06:46 03/09/23 06:29 03/09/23 06:14 03/09/23 05:59 03/09/23 05:00 03/09/23 05:00 03/09/23 05:29 03/09/23 04:30 03/09/23 04:30 03/09/23 05:14 03/09/23 04:59 03/09/23 04:44 03/09/23 04:29 03/09/23 04:14 03/09/23 04:00 03/09/23 04:00 03/09/23 03:30 03/09/23 03:30 03/09/23 03:59 03/09/23 03:00 03/09/23 03:00 03/09/23 03:44 03/09/23 03:29 03/09/23 03:16 03/09/23 02:59 03/09/23 02:45 03/09/23 02:00 03/09/23 02:00 03/09/23 02:30 03/09/23 02:14 03/09/23 02:01 03/09/23 01:45 03/09/23 01:30 03/09/23 01:16 03/09/23 01:00 03/09/23 00:46 03/09/23 00:30 03/09/23 00:00 03/09/23 00:00 03/09/23 00:14 03/09/23 00:01 03/08/23 23:45 03/08/23 23:30 03/08/23 23:14 03/08/23 22:59 03/08/23 22:15 03/08/23 22:15 03/08/23 22:44 03/08/23 22:29 03/08/23 22:14 03/08/23 21:59 03/08/23 21:58 03/08/23 21:58 03/08/23 21:44 03/08/23 21:29 03/08/23 21:14 03/08/23 20:59 03/08/23 20:44 03/08/23 20:29 03/08/23 20:15 03/08/23 20:00 03/08/23 19:44 03/08/23 19:30 03/08/23 19:15 03/08/23 18:59 03/08/23 18:45 03/08/23 18:31 03/08/23 18:16 03/08/23 18:00 03/08/23 17:45 03/08/23 17:30 03/08/23 17:22 03/08/23 17:22 03/08/23 17:14 03/08/23 17:00 03/08/23 16:44 Pain Intensity Abdomen: Pain Intensity: 2 Transfer of Care Handoff Completed per policy Notes Mental Status: alert / awake / arousable Patient Amnestic to Procedure: Yes Nausea / Vomiting: adequately controlled Pain: adequately controlled Airway Patency, RR, SpO2: stable & adequate BP & HR: stable & adequate Hydration State: stable & adequate Neuraxial Anesthesia: was administered and sensory block is resolving Anesthetic Complications: no major complications apparent
[2023-03-09] MEDS ORDERED: OXYTOCIN 30 UNITS in LACTATED RINGER'S 1,000 ML IV SCH (18:45)
[2023-03-09] MEDS: KETOROLAC 30 MG/ML VIAL IV PRN (19:09)
[2023-03-09] MEDS: DOCUSATE SODIUM 100 MG CAP PO SCH (21:47)
[2023-03-09] MEDS: SIMETHICONE 80 MG CHEW PO SCH ×2 (21:47→22:02)
[2023-03-10] MEDS: KETOROLAC 30 MG/ML VIAL IV PRN ×2 (01:14→08:30)
[2023-03-10] MEDS: LEVOTHYROXINE SODIUM 88 MCG TABLET PO SCH (06:54)
--- NOTE | 2023-03-10 07:50 | Obstetrical Progress Note ---
Date of Service March 10, 2023 Assessment & Plan (1) Supervision of normal intrauterine in primigravida: Recovering well POD#1 Subjective Voiding: bahena catheter in place Passing Gas:: Yes Diet Tolerance:: regular diet Lochia:: Small Feeding Type:: breast feeding Stood at bedside but hasn't ambulated yet, bahena still in place. Physical Exam Constitutional WD/WN, vitals as above Eyes PERRL, conjunctivae normal, anicteric sclerae Neck normal visual inspection Respiratory normal respiratory effort and able to speak in complete sentences; no respiratory distress and no labored breathing Cardiovascular Rate/Rhythm: regular rate and regular rhythm Extremities: no edema Chest (Breasts) Chest: normal inspection of chest Gastrointestinal (Abdomen) Inspection/Auscultation: abdomen normal to inspection Soft, postgravid c/d/i with surgical glue Psychiatric A+Ox3, euthymic affect Genitourinary OB Exam Abdomen: + fundal height Fundus: + firm and + relation to umbilicus (fundus just below umbilicus); not tender Results & Data Vital Signs (Past 12 Hours) Vital Signs Temp Pulse Resp BP Pulse Ox O2 Del Method 03/10/23 06:06 18 98 03/10/23 05:03 18 98 03/10/23 03:58 20 97 03/10/23 02:00 18 98 03/10/23 02:58 18 99 03/10/23 02:58 98.2 F 100 H 18 98/63 L 99 Room Air 03/10/23 00:15 Room Air 03/10/23 01:00 18 97 03/10/23 00:00 20 97 03/09/23 23:12 18 99 03/09/23 23:12 97.9 F 99 H 18 101/63 99 Room Air 03/09/23 22:00 18 98 03/09/23 21:00 18 98 03/09/23 20:00 18 98
[2023-03-10 08:02] LABS: Basophils # (auto) 0.04 K/uL (0-0.2); Basophils % (auto) 0.2 %; Eosinophils # (auto) 0.11 K/uL (0-0.50); Eosinophils % (auto) 0.6 %; Hematocrit (blood only) 23.8 % (37.0-47.0); Hemoglobin 8.1 g/dl (12.0-16.0); Immature Granulocytes # (auto) 0.17 K/uL (0.01-0.20); Immature Granulocytes % (auto) 0.9 %; Mean Corpuscular Volume 85.3 fL (80.0-100.0); Mean Platelet Volume 10.9 fL (9.4-12.4); Monocytes # (auto) 1.58 K/uL (0.11-0.59); Monocytes % (auto) 8.7 %; Neutrophils # (auto) 14.38 K/uL (1.40-6.50); Neutrophils % (auto) 79.6 %; Platelet Count 179 K/uL (130-400); RDW Coefficient of Variation 14.7 % (11.5-14.5); RDW Standard Deviation 45.8 fL (36.4-46.3); Red Blood Count 2.79 M/uL (4.20-5.40); White Blood Count 18.08 K/ul (4.8-10.8)
[2023-03-10] MEDS: FERROUS SULFATE 325 MG TAB PO SCH (08:29)
[2023-03-10] MEDS: DOCUSATE SODIUM 100 MG CAP PO SCH ×2 (08:29→19:37)
[2023-03-10] MEDS: SIMETHICONE 80 MG CHEW PO SCH ×4 (08:29→19:37)
[2023-03-10] MEDS: PRENATAL VITAMIN 1 TAB PO SCH (08:29)
[2023-03-10] MEDS ORDERED: MEPERIDINE HCL 50 MG/ML CARP IV PRN (10:06)
[2023-03-10] MEDS ORDERED: PROMETHAZINE HCL 25 MG in SODIUM CHLORIDE 0.9% 50 ML IV PRN (10:06)
[2023-03-10] MEDS ORDERED: KETOROLAC 30 MG/ML VIAL IV PRN (10:06)
[2023-03-10] MEDS ORDERED: diphenhydrAMINE 50 MG/ML VIAL IV PRN (10:06)
[2023-03-10] MEDS ORDERED: diphenhydrAMINE Capsule 25 MG CAP PO PRN (10:06)
[2023-03-10] MEDS: ESCITALOPRAM OXALATE 20 MG TAB PO SCH (10:09)
[2023-03-10] MEDS: oxyCODONE/ACETAMINOPHEN 5mg/325mg TAB PO PRN ×3 (12:53→23:57)
[2023-03-10] MEDS: IBUPROFEN 600 MG TAB PO PRN ×3 (14:22→23:56)
[2023-03-10] MEDS ORDERED: bisacodyL 5 MG TABEC PO SCH (20:00)
--- NOTE | 2023-03-11 05:55 | Obstetrical Progress Note ---
Date of Service <Alisson Love DO - Last Filed: 03/11/23 06:16> March 11, 2023 Assessment & Plan <Alisson Love DO - Last Filed: 03/11/23 06:16> (1) care following delivery: Feels well today. Eating well, voiding well, ambulating well. Pain well controlled with percocet. Routine care; OOB, ambulation, continue regular diet. Anticipate discharge 48-72 hours after , likely today or tomorrow. After discharge will have 6 week follow-up with Dr. Matias. <Eloisa Matias MD - Last Filed: 03/11/23 07:09> (1) care following delivery: Subjective <Alisson Love DO - Last Filed: 03/11/23 06:16> Pt is a 32 y/o female who is POD#2 following delivery at 39 4/7 weeks. was complicated by GDM. Delivery was complicated by failed induction. Patient states she is feeling well today. She has been ambulating, voiding, and passing gas since the procedure. She has some persistent lochia with some improvement this morning. She has been tolerating a regular diet without nausea/vomiting. Her pain is a 5/10 and well controlled with prn percocet. She is breast feeding. Constitutional: no fever, no chills or no sweats Respiratory: no dyspnea Cardiovascular: no chest pain or no palpitations Breast: no breast pain Genitourinary (female): no dysuria Neurologic: no headache(s) no changes in vision, no headaches Physical Exam <Alisson Love DO - Last Filed: 03/11/23 06:16> General: Alert, oriented. No acute distress. Cardiac: Regular rate and rhythm, no murmurs, rubs, or gallops. Respiratory: Clear to auscultation bilaterally, no wheezes/rales/rhonchi. No increased work of breathing. Symmetrical chest rise. No respiratory distress. Abdomen: Soft, nontender, nondistended. Bowel sounds present. Uterus: Uterine fundus firm, palpable below the umbilicus. Surgical incision intact and healing well. Lower extremities: No lower extremity edema or swelling. No deep calf pain. Results & Data <Alisson Love DO - Last Filed: 03/11/23 06:16> Vital Signs (Past 12 Hours) Vital Signs Temp Pulse Resp BP BP Pulse Ox O2 Del Method 03/10/23 22:58 37.1 C 103 H 18 104/68 95 Room Air 03/10/23 19:30 37.0 C 105 H 18 139/82 98 Room Air <Eloisa Matias MD - Last Filed: 03/11/23 07:09> Co-Signing Physician Notes Resident Physician Supervision Note: I interviewed and examined the patient. Discussed with Dr. Love and agree with findings and plan as documented in the note. Any exceptions or clarifications are listed here: [ ] Documented By: Eloisa Matias MD, FACOG Resident Activity Tracking <Alisson Love DO - Last Filed: 03/11/23 06:16> Resident Involvement: Resident Care Provided Care Provided: OB Delivery
[2023-03-11] MEDS: LEVOTHYROXINE SODIUM 88 MCG TABLET PO SCH (06:01)
[2023-03-11] MEDS: oxyCODONE/ACETAMINOPHEN 5mg/325mg TAB PO PRN ×4 (06:01→20:26)
[2023-03-11] MEDS: IBUPROFEN 600 MG TAB PO PRN ×4 (06:01→20:27)
[2023-03-11 06:25] LABS: Hematocrit (blood only) 21.2 % (37.0-47.0); Hemoglobin 7.1 g/dl (12.0-16.0)
[2023-03-11] MEDS: FERROUS SULFATE 325 MG TAB PO SCH (08:35)
[2023-03-11] MEDS: DOCUSATE SODIUM 100 MG CAP PO SCH ×2 (08:35→20:26)
[2023-03-11] MEDS: PRENATAL VITAMIN 1 TAB PO SCH (08:35)
[2023-03-11] MEDS: SIMETHICONE 80 MG CHEW PO SCH ×4 (08:35→20:26)
[2023-03-11] MEDS: ESCITALOPRAM OXALATE 20 MG TAB PO SCH (09:15)
[2023-03-11] MEDS ORDERED: bisacodyL 10 MG SUPP PR PRN (15:57)
[2023-03-12] MEDS: IBUPROFEN 600 MG TAB PO PRN ×5 (00:49→20:47)
[2023-03-12] MEDS: oxyCODONE/ACETAMINOPHEN 5mg/325mg TAB PO PRN ×5 (00:49→20:48)
[2023-03-12] MEDS: LEVOTHYROXINE SODIUM 88 MCG TABLET PO SCH (06:05)
--- NOTE | 2023-03-12 06:23 | Obstetrical Progress Note ---
Date of Service <Alisson Love DO - Last Filed: 03/12/23 06:42> March 12, 2023 Assessment & Plan <Alisson Lvoe DO - Last Filed: 03/12/23 06:42> (1) care following delivery: Feels well today. Eating well, voiding well, ambulating well. Pain well controlled with percocet. Routine care; OOB, ambulation, continue regular diet. Plan for discharge today. After discharge will have 6 week follow-up with Dr. Matias. <Deepika Zaho MD, FACOG - Last Filed: 03/12/23 08:23> (1) care following delivery: Day #:: 3 Subjective <Alisson Love DO - Last Filed: 03/12/23 06:42> Pt is a 32 y/o female who is POD#3 following delivery at 39 4/7 weeks. was complicated by GDM. Delivery was complicated by failed induction.Pt states that she is feeling well today. She has been ambulating, voiding, passing gas, and had a BM since her . She has been tolerating regular diet without nausea or vomiting. She states her bleeding is very light now. She states that she is only really having pain when she walks around or gets up, and her pain is currently a 3/10. She states that her pain has been well controlled with prn percocet. She also notes that her feet got pretty swollen yesterday but it has since improved. No questions or concerns at this time. She is breast feeding. Constitutional: no fever, no chills or no sweats Respiratory: no dyspnea Cardiovascular: no chest pain or no palpitations Breast: no breast pain Genitourinary (female): no dysuria Neurologic: no headache(s) no changes in vision, no headaches Physical Exam <Alisson Love DO - Last Filed: 03/12/23 06:42> General: Alert, oriented. No acute distress. Cardiac: Regular rate and rhythm, no murmurs, rubs, or gallops. Respiratory: Clear to auscultation bilaterally, no wheezes/rales/rhonchi. No increased work of breathing. Symmetrical chest rise. No respiratory distress. Abdomen: Soft, nontender, nondistended. Bowel sounds present. Uterus: Uterine fundus firm, palpable below the umbilicus. Surgical incision intact and healing well. No surrounding erythema or discharge. Lower extremities: Minor lower extremity edema noted. No deep calf pain. Results & Data <Alisson Love DO - Last Filed: 03/12/23 06:42> Vital Signs (Past 12 Hours) Vital Signs Temp Pulse Resp BP O2 Del Method 03/12/23 01:00 36.7 C 92 H 18 129/78 03/11/23 20:20 Room Air 03/11/23 20:20 37.0 C 116 H 18 134/84 <Deepika Zhao MD, FACOG - Last Filed: 03/12/23 08:23> Co-Signing Physician Notes Resident Physician Supervision Note: I was present with Dr. Love during the history and exam. I discussed the case with the resident and agree with the findings and plan as documented in the note. Any exceptions or clarifications are listed here: stable doing well overall, tolerating her hgb which was reviewed with her, will add fe and colace. pain well controlled. baby requiring support in nursery. pt trying to breastfeed. mood ok. abd soft ff 2 down nt, incision c/d/i. ext nt calves. pedal +1 edema. pod#3 s/p c/s. will cont current care, baby in INBN and getting iv abx and extra support per pt. breast/RHpos/RI Documented By: Deepika Zhao MD, FACOG Resident Activity Tracking <Alisson Love DO - Last Filed: 03/12/23 06:42> Resident Involvement: Resident Care Provided Care Provided: OB Delivery
[2023-03-12] MEDS: FERROUS SULFATE 325 MG TAB PO SCH ×2 (09:38→18:47)
[2023-03-12] MEDS: SIMETHICONE 80 MG CHEW PO SCH ×4 (09:38→20:47)
[2023-03-12] MEDS: DOCUSATE SODIUM 100 MG CAP PO SCH ×2 (09:39→20:47)
[2023-03-12] MEDS: PRENATAL VITAMIN 1 TAB PO SCH (09:39)
[2023-03-12] MEDS: ESCITALOPRAM OXALATE 20 MG TAB PO SCH (09:41)
[2023-03-13] MEDS: oxyCODONE/ACETAMINOPHEN 5mg/325mg TAB PO PRN ×5 (00:20→17:52)
[2023-03-13] MEDS: IBUPROFEN 600 MG TAB PO PRN ×4 (04:24→17:52)
--- NOTE | 2023-03-13 05:45 | Obstetrical Progress Note ---
Date of Service <Alisson Beyer DO Ivan - Last Filed: 03/13/23 05:45> March 13, 2023 Assessment & Plan <Alisson Beyer DO Ivan - Last Filed: 03/13/23 05:45> (1) care following delivery: Pt continuing to do well. Pain well controlled with percocet prn. Routine care; OOB, ambulation, continue regular diet. Plan for discharge, likely to nesting status, today. After discharge will have 6 week follow-up with Dr. Matias. <Elin Bolivar MD, FACOG - Last Filed: 03/13/23 06:58> (1) care following delivery: Subjective <Alisson Beyer DO Ivan - Last Filed: 03/13/23 05:45> Pt is a 32 y/o female who is POD#4 following delivery at 39 4/7 weeks. was complicated by GDM. Delivery was complicated by failed induction.Today, patient is continuing to do well. She is still ambulating, voiding, passing gas, and having bowel movements. She states her bleeding is very minimal. Her pain has been about a 2/10 and controlled with prn analgesics. She is still breast feeding. She states that the baby didn't do any better or worse yesterday and she is just worried about the baby. No further questions or complaints at this time. Constitutional: no fever, no chills or no sweats Respiratory: no dyspnea Cardiovascular: no chest pain or no palpitations Breast: no breast pain Genitourinary (female): no dysuria Neurologic: no headache(s) no changes in vision, no headaches Physical Exam <Alisson Beyer DO Ivan - Last Filed: 03/13/23 05:45> General: Alert, oriented. No acute distress. Cardiac: Regular rate and rhythm, no murmurs, rubs, or gallops. Respiratory: Clear to auscultation bilaterally, no wheezes/rales/rhonchi. No increased work of breathing. Symmetrical chest rise. No respiratory distress. Abdomen: Soft, nontender, nondistended. Bowel sounds present. Uterus: Uterine fundus firm, palpable below the umbilicus. Surgical incision intact and continuing to heal well. Lower extremities: Minor lower extremity edema noted. No deep calf pain. Results & Data <Alisson Love DO - Last Filed: 03/13/23 05:45> Vital Signs (Past 12 Hours) Vital Signs Temp Pulse Pulse Resp BP Pulse Ox O2 Del Method 03/13/23 00:09 36.6 C 102 H 20 130/82 97 Room Air 03/12/23 20:39 36.9 C 112 H 22 137/84 99 Room Air <Elin Bolivar MD, FACOG - Last Filed: 03/13/23 06:58> Co-Signing Physician Notes Resident Physician Supervision Note: I was present with Dr. Love during the history and exam. I discussed the case with the resident and agree with the findings and plan as documented in the note. Any exceptions or clarifications are listed here: [None] Documented By: Elin Bolivar MD, FACOG Resident Activity Tracking <Alisson Love DO - Last Filed: 03/13/23 05:45> Resident Involvement: Resident Care Provided Care Provided: OB Delivery
[2023-03-13] MEDS: LEVOTHYROXINE SODIUM 88 MCG TABLET PO SCH (06:15)
[2023-03-13] MEDS: SIMETHICONE 80 MG CHEW PO SCH ×3 (08:18→17:51)
[2023-03-13] MEDS: DOCUSATE SODIUM 100 MG CAP PO SCH (08:18)
[2023-03-13] MEDS: FERROUS SULFATE 325 MG TAB PO SCH ×3 (08:18→17:52)
[2023-03-13] MEDS: PRENATAL VITAMIN 1 TAB PO SCH (08:18)
[2023-03-13] MEDS: ESCITALOPRAM OXALATE 20 MG TAB PO SCH (08:31)
--- NOTE | 2023-03-14 14:36 | Discharge Summary ---
Date of Service March 14, 2023 Admission HPI Per Admitting Provider 32 yo G1 at 39 3/ wga w/ NATHALIE 03/12 by US presents for IOL for A2GDM. 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 Pain well controlled with percocet prn. Routine care; OOB, ambulation, continue regular diet. Plan for discharge, likely to nesting status, today. After discharge will have 6 week follow-up with Dr. Matias. Coding Level of Care Code None Diagnoses care following delivery Z39.2
== END 2023-03-13 18:07 | disposition home or self-care (01) | DRG 788 ==
LOC: 4S1 07:38 → 4E2 03-09 19:07
DX: O99.214 Obesity complicating childbirth; O61.0 Failed medical induction of labor; Z79.82 Long term (current) use of aspirin; Z79.890 Hormone replacement therapy; Z79.899 Other long term (current) drug therapy; O24.424 Gestational diabetes mellitus in childbirth, insulin controlled; Z37.0 Single live birth; Z3A.39 39 weeks gestation of pregnancy; E66.9 Obesity, unspecified; Z20.822 Contact with and (suspected) exposure to COVID-19

== ENCOUNTER 2024-11-02 03:15 | Inpatient (IN) ==
--- NOTE | 2024-10-20 16:13 | Anesthesiology Consultation ---
Date of Service October 20, 2024 Assessment & Plan (1) Encounter for pre-operative examination: - Per contract project manager on 10/20/24: No known infectious disease contacts, current infectious disease symptoms in past 10 days or COVID positive test result in the past 30 days. 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 History Surgery Operation Date: 11/02/24 07:30 Proposed Procedures p Section (Delivery of Baby Through Abdominal Incision) - Eloisa Matias MD s with Bilateral Tubal Ligation - Eloisa Matias MD Height/Weight Height: 5 ft 9 in Weight: 137.438 kg Allergies Allergy/AdvReac Type Severity Reaction Status Date / Time No Known Allergies Allergy Verified 10/20/24 15:31 Medications Home Medications Medication Instructions Recorded Confirmed Last Taken ferrous sulfate 325 mg (65 mg 325 mg PO Q OTHER DAY 04/03/23 10/20/24 Unknown iron) tablet docosahexaenoic acid 200 mg 200 mg PO DAILY 03/18/24 10/20/24 Unknown capsule ( DHA) doxylamine succinate [Unisom 1 tab PO HS PRN Sleep 05/05/24 10/20/24 Unknown (doxylamine)] ondansetron HCl 4 mg tablet 4 mg PO Q6H PRN nausea and 05/05/24 10/20/24 Unknown vomiting #30 tabs pyridoxine (vitamin B6) 1 tab PO DAILY 05/05/24 10/20/24 Unknown blood sugar diagnostic (OneTouch #120 ea 05/08/24 10/16/24 Unknown Verio test strips) blood-glucose sensor (FreeStyle #2 ea 05/08/24 10/16/24 Unknown Stephanie 3 Plus Sensor device) lancets 33 gauge (OneTouch Delica #120 ea 05/08/24 10/16/24 Unknown Plus Lancet) insulin aspart U-100 100 unit/mL 10 unit (0.1 mL) subcut .at 07/17/24 10/20/24 Unknown (3 mL) subcutaneous pen (Novolog bedtime #15 mL FlexPen U-100 Insulin aspart) pen needle, diabetic 32 gauge x #100 ea 07/17/24 10/16/24 Unknown 5/32" (BD Ultra-Fine Brionna Pen Needle) acetone (urine) test (Ketone Urine #100 ea 09/03/24 10/16/24 Unknown Test strips) blood-glucose sensor (Dexcom G7 #3 ea 09/11/24 10/16/24 Unknown Sensor device) aspirin 81 mg capsule 81 mg PO DAILY 10/20/24 10/20/24 Unknown fluoxetine 40 mg capsule 40 mg PO QAM 10/20/24 10/20/24 Unknown levothyroxine 100 mcg tablet 100 mcg PO QAM 10/20/24 10/20/24 Unknown Past Medical History Medical History (Updated 10/20/24 @ 16:12 by Tasha Richter PA-C) Anemia Anxiety and depression History of chicken pox History of gestational diabetes mellitus (GDM) Hx of fall (10/12/24) no injuries, seen at [facility] Hypothyroid in , antepartum Insulin controlled gestational diabetes mellitus (GDM) during insulin at night, has a dexcom 7 monitor Twin Past Family History Family History Grandmother (Maternal) Breast cancer Other Brain cancer Diabetes Hypertension Kidney disease Ovarian cancer Denies family history of Lung cancer Colorectal cancer Past Surgical History Surgical History Hx of section (02/2023) Hx of tympanostomy tubes (2018) have fallen out since S/P tonsillectomy [place] teeth removed Social History Smoking Status: Never smoker Do You Dip or Chew Tobacco: No Hx Alcohol Use: Yes Alcohol Intake Frequency Comment: when not , couple times per week Hx Substance Use: No substance use type: does not use Lab Results Anesthesia Preop Results Results Anesthesia Widget: TSH 1.510 uIu/ml (0.300-4.500) 09/04/24 Free T4 0.68 ng/dl (0.61-1.60) 09/04/24 HA1c 5.9 % (4.5-5.6) H 09/04/24
--- NOTE | 2024-11-02 04:07 | History & Physical Report ---
Date of Service November 02, 2024 Assessment & Plan (1) Twin : Plan: Admit to L&D, EFM/toco, labs. Will monitor FHT and contractions for active labor - if she progresses to active labor, may need to plan for earlier - otherwise, will plan for repeat as scheduled this morning. Requesting pain medication - ok for one dose stadol now, as cervix is 1cm. Will plan for 3g Ancef and 500mg azithro. Will check glucose. Admission and Anticipated Discharge Date Admission Date: November 02, 2024 History of Present Illness Primary Care Provider: Emy Miller MD 34yo @ 38 09/01, di/di twins. Presented to L&D after gush of clear fluid at 2:20a today. Feeling contractions q 8-10 minutes. Scheduled for repeat CS with tubal this morning. and Delivery Plans All Twins *Baby ASA daily start 12-28wks until delivery *Anatomy scan @20wks - @ [facility] 07/02/24 *Serial growth US/S starting @24wks *Wkly NST's @32wks, twice wkly @36wks(nml growth) *Twice wkly NST's @32wks, ICSI or abnml growth *MD visits Q2wks @24wks & Qwk @32wks Twin Del Plan *DI/DI Deliver @38wks GDM on insulin *Wkly NSTs @32wks and Twice wkly @36wks *Serial growth US @28wks *Deliver by [facility] Hypothyroid *Check TFTs Q4wks AMA Previous : Desires BTL - Repeat C/S WITH TUBAL SCHEDULED FOR 11/02/[address] FINNEY AND DR. MENDES ASSIST. Obesity (BMI between 35-39 @ beginning of ) - Covered by Twin protocol Allergies Allergy/AdvReac Type Severity Reaction Status Date / Time No Known Allergies Allergy Verified 10/29/24 10:34 Home Medications Medication Instructions Recorded Confirmed Type ferrous sulfate 325 mg (65 mg 325 mg PO Q OTHER DAY 04/03/23 11/02/24 History iron) tablet docosahexaenoic acid 200 mg 200 mg PO DAILY 03/18/24 11/02/24 History capsule ( DHA) doxylamine succinate [Unisom 1 tab PO HS PRN Sleep 05/05/24 11/02/24 History (doxylamine)] ondansetron HCl 4 mg tablet 4 mg PO Q6H PRN nausea and 05/05/24 11/02/24 Rx vomiting #30 tabs pyridoxine (vitamin B6) 1 tab PO DAILY 05/05/24 10/29/24 History blood sugar diagnostic (OneTouch #120 ea 05/08/24 10/29/24 Rx Verio test strips) blood-glucose sensor (FreeStyle #2 ea 05/08/24 10/29/24 Rx Stephanie 3 Plus Sensor device) lancets 33 gauge (OneTouch Delica #120 ea 05/08/24 10/29/24 Rx Plus Lancet) insulin aspart U-100 100 unit/mL 10 unit (0.1 mL) subcut .at 07/17/24 11/02/24 Rx (3 mL) subcutaneous pen (Novolog bedtime #15 mL FlexPen U-100 Insulin aspart) pen needle, diabetic 32 gauge x #100 ea 07/17/24 10/29/24 Rx 5/32" (BD Ultra-Fine Brionna Pen Needle) acetone (urine) test (Ketone Urine #100 ea 09/03/24 10/29/24 Rx Test strips) blood-glucose sensor (Dexcom G7 #3 ea 09/11/24 10/29/24 Rx Sensor device) aspirin 81 mg capsule 81 mg PO DAILY 10/20/24 11/02/24 History fluoxetine 40 mg capsule 40 mg PO QAM 10/20/24 11/02/24 History levothyroxine 100 mcg tablet 100 mcg PO QAM 10/20/24 11/02/24 History Patient History Medical History Anemia Anxiety and depression History of chicken pox History of gestational diabetes mellitus (GDM) Hx of fall (10/12/24) no injuries, seen at [facility] Hypothyroid in , antepartum Insulin controlled gestational diabetes mellitus (GDM) during insulin at night, has a dexcom 7 monitor Twin Surgical History Hx of section (02/2023) Hx of tympanostomy tubes (2018) have fallen out since S/P tonsillectomy [place] teeth removed Family History Grandmother (Maternal) Breast cancer Other Brain cancer Diabetes Hypertension Kidney disease Ovarian cancer Denies family history of Lung cancer Colorectal cancer Social History Smoking Status: Never smoker Second Hand Exposure: No; Do You Dip or Chew Tobacco: No; Tobacco Cessation Education Requested by Patient: No Hx Alcohol Use: No Hx Substance Use: No Preferred Language: Greek Communication Ability: Effective Big Data Admin Required: No Beliefs That Will Affect Care: None marital status: marital status details: Doron (35) [phone] Current Living Situation: Spouse and Family Current Living Situation Comment: lives with spouse, child, cats, spouse to change litter current occupational status: employed 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, 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 Other Information That Helps Us Care for You: No Feels Safe at Home: Yes Safety Concerns: Feels Safe At This Time caffeine: Yes Dental Care, Regularly: Yes Seatbelt Use: always Sunscreen Use: Yes Assistive Devices: None Review of Systems All systems reviewed & are unremarkable except as noted in HPI & below Physical Exam Physical Exam: Cervix exam 1cm/90%/high FHT Cat 1 [place] Q 6 min Constitutional: WD/WN, vitals as above Respiratory: normal respiratory effort, lungs clear to auscultation no respiratory distress Cardiovascular: Rate/Rhythm: regular rate and regular rhythm Gastrointestinal (Abdomen): Inspection/Auscultation: abdomen normal to inspection Percussion/Palpation: abdomen soft; abdomen nontender Gravid. No s/s chorio or abruption. Skin: no rashes, warm and dry Psychiatric: A+Ox3, euthymic affect Results & Data Vital Signs (Past 12 Hours) Vital Signs Temp Pulse Resp BP Pulse Ox 11/02/24 04:03 94 H 99 11/02/24 03:59 95 H 150/92 H 11/02/24 03:48 100 H 163/87 H 11/02/24 03:41 36.5 C 16 Coding Level of Care Code None Diagnoses Twin O30.009
[2024-11-02] MEDS ORDERED: BUTORPHANOL TARTRATE 1 MG/ML VIAL IV ONE (04:22)
[2024-11-02 04:35] LABS: Basophils # (auto) 0.02 K/uL (0.00-0.20); Basophils % (auto) 0.2 %; Eosinophils # (auto) 0.07 K/uL (0.00-0.50); Eosinophils % (auto) 0.8 %; Hematocrit (blood only) 32.9 % (37.0-47.0); Immature Granulocytes # (auto) 0.06 K/uL (0.01-0.20); Immature Granulocytes % (auto) 0.7 %; Lymphocytes # (auto) 1.84 K/uL (1.20-3.40); Lymphocytes % (auto) 20.6 %; Mean Corpuscular Hemoglobin 28.9 pg (25.0-34.0); Mean Corpuscular Hgb Conc 33.4 g/dL (32.0-36.0); Mean Corpuscular Volume 86.6 fL (80.0-100.0); Mean Platelet Volume 11.3 fL (9.4-12.4); Monocytes # (auto) 0.81 K/uL (0.11-0.59); Monocytes % (auto) 9.1 %; Neutrophils # (auto) 6.13 K/uL (1.40-6.50); Neutrophils % (auto) 68.6 %; Platelet Count 173 K/uL (130-400); RDW Coefficient of Variation 14.5 % (11.5-14.5); RDW Standard Deviation 45.3 fL (36.4-46.3); White Blood Count 8.93 K/ul (4.8-10.8)
[2024-11-02 04:36] LABS: Appearance Urine Cloudy (Clear); Bilirubin Urine Negative (Negative); Blood Urine 3+ (Negative); Color Urine Yellow; Glucose Urine UA Negative (Negative); Ketones Urine 2+ (Negative); Leukocyte Esterase Urine Trace (Negative); Nitrite Urine Negative (Negative); Protein Urine 2+ (Negative); Specific Gravity Urine >= 1.030 (1.000-1.030); Urobilinogen Urine Negative (Negative); pH Urine 6.5 (4.5-7.5)
[2024-11-02] MEDS ORDERED: LACTATED RINGER'S 1,000 ML IV SCH (04:45)
[2024-11-02 04:47] LABS: Bacteria Urine 4+ (None Seen); WBC Urine 0-5 /hpf (0-5)
[2024-11-02] MEDS: ACETAMINOPHEN 500 MG TAB PO SCH (06:33)
[2024-11-02] MEDS: CITRIC ACID/SODIUM CITRATE 15 ML UDC PO SCH (06:33)
[2024-11-02] MEDS: LACTATED RINGER'S 1,000 ML IV SCH ×2 (06:45→10:18)
[2024-11-02] MEDS ORDERED: PHENYLEPHRINE HCL 25 MG/250 ML NSS IV ONE (06:50)
[2024-11-02] MEDS ORDERED: diphenhydrAMINE 50 MG/ML VIAL ONE (06:53)
[2024-11-02] MEDS ORDERED: ONDANSETRON INJ 2 MG/ML 2 ML VIAL ONE (06:53)
[2024-11-02] MEDS ORDERED: OXYTOCIN 10 UNITS/ML VIAL ONE (06:53)
[2024-11-02] MEDS ORDERED: fentaNYL citrate PF 100 MCG/2 ML VIAL ONE (06:54)
[2024-11-02] MEDS ORDERED: MoRPHine SULFATE PF 1 MG/ML 10 ML AMP/VIAL ONE (06:54)
[2024-11-02] MEDS ORDERED: SODIUM CHLORIDE 0.9% 50 ML IV PRN ×2 (07:16→20:51)
[2024-11-02] MEDS ORDERED: SODIUM CHLORIDE 0.9% 100 ML IV PRN ×2 (07:16→20:51)
[2024-11-02] MEDS: ceFAZolin 3000MG 3,000 MG/72.5 ML BAG IV SCH (07:29)
[2024-11-02] MEDS: AZITHROMYCIN 500 MG/255 ML BAG IV SCH (07:55)
[2024-11-02] MEDS ORDERED: ePHEDrine sulfate 50 MG/5 ML SYR ONE (08:14)
[2024-11-02] MEDS ORDERED: CARBOPROST TROMETHAMINE 250 MCG/ML AMPUL ONE (08:17)
[2024-11-02] MEDS ORDERED: ePHEDrine sulfate 50 MG/ML AMP IV PRN (08:21)
[2024-11-02] MEDS ORDERED: ONDANSETRON INJ 2 MG/ML 2 ML VIAL IV PRN (08:21)
[2024-11-02] MEDS ORDERED: PROMETHAZINE 6.25 MG/50.25 ML BAG IV PRN (08:21)
[2024-11-02] MEDS ORDERED: oxyCODONE HCL IR 5 MG TAB (IMMEDIATE RELEASE) PO PRN (08:21)
[2024-11-02] MEDS ORDERED: diphenhydrAMINE 50 MG/ML VIAL IV PRN (08:21)
[2024-11-02] MEDS ORDERED: HYDROmorphone INJ 0.5 MG/0.5 ML SYR IV PRN (08:21)
[2024-11-02] MEDS ORDERED: NALOXONE HCL 1 MG in SODIUM CHLORIDE 0.9% 1,000 ML IV PRN (08:21)
[2024-11-02] MEDS ORDERED: NALOXONE HCL 0.4 MG/1 ML VIAL/CARP IV PRN (08:21)
[2024-11-02] MEDS ORDERED: NALBUPHINE HCL INJ 10 MG/ML AMP IV PRN (08:21)
[2024-11-02] MEDS ORDERED: DC INTRASPINAL MORPHINE SCH (08:30)
[2024-11-02] MEDS ORDERED: NO NARCOTICS OR SEDATIVES SCH (08:30)
[2024-11-02] MEDS: OXYTOCIN 20 UNITS/LR 1,002 ML IV SCH (08:55)
--- NOTE | 2024-11-02 09:01 | Anesthesiology Progress Note ---
Date of Service November 02, 2024 Anesthesia Post Procedure Vital Signs Vital Signs: Temp Pulse Resp BP Pulse Ox 11/02/24 08:58 119 H 92 11/02/24 08:55 119 H 93 11/02/24 08:54 113 H 120/62 11/02/24 08:53 117 H 100 11/02/24 07:24 100 H 98 11/02/24 07:20 95 H 140/90 11/02/24 07:19 97 H 99 11/02/24 07:14 100 H 98 11/02/24 07:09 36.8 C 97 H 20 98 11/02/24 07:03 102 H 99 11/02/24 06:58 96 H 99 11/02/24 06:53 99 H 95 11/02/24 06:48 100 H 96 11/02/24 06:43 96 H 98 11/02/24 06:38 102 H 99 11/02/24 06:33 100 H 97 11/02/24 06:28 100 H 97 11/02/24 06:23 97 H 96 11/02/24 06:18 99 H 97 11/02/24 06:13 100 H 97 11/02/24 06:11 14 11/02/24 06:11 36.6 C 14 11/02/24 06:08 99 H 96 11/02/24 06:03 94 H 99 11/02/24 05:58 103 H 96 11/02/24 05:53 93 H 99 11/02/24 05:48 93 H 99 11/02/24 05:43 96 H 97 11/02/24 05:38 93 H 99 11/02/24 05:33 99 H 98 11/02/24 05:28 94 H 96 11/02/24 05:23 94 H 96 11/02/24 05:22 101 H 94 11/02/24 05:18 95 H 98 11/02/24 05:13 96 H 98 11/02/24 05:08 96 H 97 11/02/24 05:03 100 H 96 11/02/24 04:58 94 H 97 11/02/24 04:53 101 H 96 11/02/24 04:48 96 H 97 11/02/24 04:43 103 H 95 11/02/24 04:38 102 H 98 11/02/24 04:33 94 H 98 11/02/24 04:28 96 H 98 11/02/24 04:23 104 H 99 11/02/24 04:18 96 H 98 11/02/24 04:13 95 H 98 11/02/24 04:08 96 H 98 11/02/24 04:03 94 H 99 11/02/24 03:59 95 H 150/92 H 11/02/24 03:48 100 H 163/87 H 11/02/24 03:41 36.5 C 16 Pain Intensity Lower Medial Back: Pain Intensity: 7 Transfer of Care Handoff Completed per policy Notes Mental Status: alert / awake / arousable and participated in evaluation Patient Amnestic to Procedure: No Nausea / Vomiting: adequately controlled Pain: adequately controlled Airway Patency, RR, SpO2: stable & adequate BP & HR: stable & adequate Hydration State: stable & adequate Neuraxial Anesthesia: was administered and sensory block is resolving Anesthetic Complications: no major complications apparent and Pt Satisfied with anesthetic care
--- NOTE | 2024-11-02 09:03 | Operative Report ---
PG Post Operative Report Pre & Post Diagnosis Operation Date: 11/02/24 07:30 Pre-Op Diagnosis: History of Section, Oksana twins, Desires sterilization Post-Op Diagnosis: History of Section, Oksana twins, Desires sterilization I identified the patient and participated in the time-out.: Yes Procedure Operation Date: 11/02/24 07:30 Actual Procedures Low Transverse Section for twins Lysis of adhesions Bilateral Salpingectomy Surgeon Eloisa Matias MD Historical Records Administrator DO Isaak Estimated Blood Loss 1,255 (QBL) Findings Consistent with Post-Op Diagnosis Specimens Placenta, Cord blood Anesthesia Type Spinal Complications none Disposition Accompanied Patient To Recovery: Yes Disposition: L&D Description of Procedure The patient was placed operating table in the supine position with a leftward tilt. She was prepped and draped in standard sterile fashion. The anesthetic was tested and found to be adequate. A time-out was held, identifying correct patient, procedure, positioning and preoperative antibiotics. There were no concerns. A Pfannenstiel skin incision was made with a knife and taken down to the underlying layer of fascia, excising the prior keloid cicatrix. The fascia was incised in the midline with the knife and taken out laterally with scissors. The superior edge of the fascial incision was grasped, elevated and dissected off the underlying rectus both superiorly and inferiorly. The muscles were bluntly in the midline. The peritoneum was entered bluntly. The incision was then stretched. Lysis of adhesions to the anterior uterine wall and release of several tendrils of omentum from the abdominal wall were done sharply with bovie for good hemostasis. The Miguel Ángel retractor was placed. A hysterotomy incision was created transversely in the lower uterine segment, final entry being accomplished in a blunt manner with the cloth cutting machine operator's fingers. Clear amniotic fluid was encountered. The cloth cutting machine operator's hand was used to elevate the hips of fetus A, the female, to the hysterotomy. The body was delivered to the shoulders, which naturally allowed the legs to deliver, the arms were swept in physiologic position, and the head was delivered in flexion. The cord was clamped and cut and the infant was then handed off to the awaiting podiatrist orthopedic. Cord blood was obtained. Baby B's amnion was then ruptured for clear fluid. Baby B, the male, was transverse. A foot was identified and brought to the incision, and the second foot/leg were identified and brought to the hysterotomy as well. The baby was delivered feet-first up to the level of the shoulders, the arms were swept in physiologic position, and the head was delivered in flexion. The cord was clamped and cut and the infant was handed off to the awaiting podiatrist orthopedic. Cord blood was obtained. The placentas were Manually extracted. The uterus was exteriorized and cleared of all clot and debris with moistened laparotomy sponges. The hysterotomy incision was repaired in two layers, the first in a running locked layer, the second in an imbricating layer. A small hematoma was noted at the L angle, 2- 3cm in size, and was addressed with a locked suture. The ovaries and tubes were seen to be normal bilaterally. The tubes were each excised from fimbria to cornua using Ligasure, after final verbal re-consent was given for the sterilization procedure. The hematoma at the L angle of the hysterotomy was checked again and not seen to have grown at all. The uterus was gently replaced in the abdomen, and the gutters were cleared of clot and debris. A final inspection of the hysterotomy revealed good hemostasis. The rectus muscles were allowed to reapproximate naturally. The fascia was then reapproximated with 1 Vicryl in a running nonlocked manner. The fascia was examined and found to be free of defect following closure. The subcutaneous tissue was copiously irrigated and reapproximated with 0-chromic, then the skin edges were closed with 4-0 monocryl in a subcuticular fashion. A dermabond dressing was applied. The bahena was found to be draining clear yellow urine at completion of the procedure. I attest to the content of the Intraoperative Record and any orders documented therein. Any exceptions are noted below. I attest to the content of the Intraoperative Record and any orders documented therein. Any exceptions are noted below. OB Procedure Charges [id number] Add on Tubal for C/S
[2024-11-02] MEDS ORDERED: NON-FORMULARY MEDICATION (Ferrous Sulfate 325 mg (65 mg iron) tablet) PO SCH (09:23)
[2024-11-02] MEDS ORDERED: CALCIUM CARBONATE 500 MG CHEWABLE TAB PO PRN (09:23)
[2024-11-02] MEDS ORDERED: SENNA 8.6 MG TAB PO PRN (09:23)
[2024-11-02] MEDS ORDERED: HYDROCORTISONE ACETATE 25 MG SUPP PR PRN (09:23)
[2024-11-02] MEDS ORDERED: BENZOCAINE 20% SPRY 85 APPLN/85 GM CAN EXT PRN (09:23)
[2024-11-02] MEDS ORDERED: SODIUM CHLORIDE 0.9% 1,000 ML IV SCH (09:23)
[2024-11-02] MEDS: KETOROLAC 30 MG/ML VIAL IV SCH (09:25)
[2024-11-02] MEDS: KETOROLAC 30 MG/ML VIAL ONE (09:25)
[2024-11-02] MEDS: DIPHTHER/TETAN/PERTUS Vaccine (Tdap, Adol/Adult) 0.5mL IM ONE (10:04)
[2024-11-02] MEDS: MoRPHine SULFATE PF 1 MG/ML 10 ML AMP/VIAL INT SPINAL ONE (10:09)
[2024-11-02] MEDS ORDERED: Nursing to Pharmacy Communication SCH (10:15)
[2024-11-02] MEDS: FLUoxetine HCL 20 MG CAP PO SCH (10:22)
[2024-11-02] MEDS: SIMETHICONE 80 MG CHEW PO SCH (13:14)
[2024-11-02] MEDS: LEVOTHYROXINE SODIUM 100 MCG TABLET PO SCH (13:15)
[2024-11-02] MEDS: ACETAMINOPHEN 325 MG TAB PO SCH (15:31)
[2024-11-02 17:54] LABS: Hematocrit (blood only) 24.8 % (37.0-47.0); Hemoglobin 8.5 g/dl (12.0-16.0)
[2024-11-02] MEDS: NALOXONE HCL 0.08 MG in SYRINGE 1.8 ML IV PRN (20:38)
--- NOTE | 2024-11-02 20:53 | Communication Note ---
Date of Service: November 02, 2024 Patient is not feeling well when she sits up she feels weak and shaky I reviewed the hemoglobin of 8.5 although this is probably artificially high as she is not fully rehydrated from the significant hemorrhage at her this morning I suggested transfusion of 2 units packed red blood cells reviewed this and the consent with the patient patient agrees and wishes to feel better and thinks blood will help and I agree
[2024-11-03] MEDS ORDERED: PROMETHAZINE 12.5 MG/50.5 ML BAG IV PRN (02:21)
[2024-11-03] MEDS ORDERED: HYDROmorphone INJ 0.5 MG/0.5 ML SYR IV PRN (02:21)
[2024-11-03] MEDS ORDERED: diphenhydrAMINE Capsule 25 MG CAP PO PRN (02:21)
[2024-11-03] MEDS ORDERED: ONDANSETRON INJ 2 MG/ML 2 ML VIAL IV PRN (02:21)
[2024-11-03] MEDS ORDERED: diphenhydrAMINE 50 MG/ML VIAL IV PRN (02:21)
--- NOTE | 2024-11-03 06:39 | Obstetrical Progress Note ---
Date of Service November 03, 2024 Assessment & Plan (1) state: (2) hemorrhage: (3) S/P : Plan Kasey is a 34yo day 1 s/p repeat for twins, complicated by QBL 2141cc s/p Pit and hemabate. Feels well today, VSS Continue care Encourage ambulation Pain control with ibuprofen as needed Hgb: 8.5 -> 8.9 Home in 2-3 days Follow up with Dr. Mulligan/Florencio in 6wks Admission and Anticipated Discharge Date Admission Date: November 02, 2024 Supervising Physician Co-Signing Physician Notes Resident Physician Supervision Note: I was present with [Name of resident] during the history and exam. I discussed the case with the resident and agree with the findings and plan as documented in the note. Any exceptions or clarifications are listed here: [None] Documented By: Jake Gee MD, FACOG Subjective Kasey is a 34yo day 1 s/p repeat for twins, complicated by QBL 2141cc s/p Pit and hemabate. Feeling: good although some abdominal soreness Ambulation: not yet Void: has cath in, no BM yet Gas: no Lochia: decreasing slightly Diet: tolerating Feeding: bottle Sx: denies other than soreness Physical Exam Physical Exam: Constitutional: WD/WN, appearing a bit tired, vitals as above GI/abd: +BS, abdomen soft, fundus somewhat firm palpable 1fw+ umbilicus - low-transverse incision scar: healing well- no erythema, swelling, discharge, or bleeding Ext: no LE edema, calves nontender to palpation, wiggles toes; SCDs in place Psychiatric: A&Ox3, euthymic Results & Data Vital Signs (Past 12 Hours) Vital Signs Temp Pulse Pulse Resp BP BP Pulse Ox 11/03/24 03:15 36.5 C 93 H 16 126/81 99 11/03/24 02:20 14 99 11/03/24 02:07 36.7 C 95 H 14 125/78 99 11/03/24 01:37 36.5 C 94 H 16 123/81 99 11/03/24 01:30 16 99 11/03/24 01:07 36.7 C 92 H 16 122/82 99 11/03/24 00:52 36.9 C 91 H 18 118/79 99 11/03/24 00:36 36.7 C 94 H 18 122/78 99 11/03/24 00:30 18 99 11/03/24 00:25 36.7 C 99 H 11/02/24 23:35 36.8 C 90 16 122/81 99 11/02/24 23:05 16 11/02/24 23:05 36.9 C 91 H 16 120/76 99 11/02/24 23:05 36.9 C 91 H 16 120/76 99 11/02/24 22:35 18 99 11/02/24 22:35 37.0 C 89 18 127/82 99 11/02/24 22:20 37.1 C 92 H 18 132/83 99 11/02/24 22:00 36.9 C 94 H 20 139/85 99 11/02/24 21:55 18 99 11/02/24 20:00 16 99 11/02/24 19:10 20 100 11/02/24 19:10 36.7 C 96 H 20 134/86 100 O2 Del Method 11/03/24 03:15 Room Air 11/03/24 02:20 11/03/24 02:07 11/03/24 01:37 11/03/24 01:30 11/03/24 01:07 11/03/24 00:52 11/03/24 00:36 11/03/24 00:30 11/03/24 00:25 11/02/24 23:35 11/02/24 23:05 11/02/24 23:05 Room Air 11/02/24 23:05 11/02/24 22:35 11/02/24 22:35 11/02/24 22:20 11/02/24 22:00 11/02/24 21:55 11/02/24 20:00 11/02/24 19:10 11/02/24 19:10 Room Air Resident Activity Tracking Resident Involvement: Resident Care Provided Care Provided: OB Delivery (2) hemorrhage hemorrhage type: unspecified Qualified Code(s): O72.1 - Other immediate hemorrhage
[2024-11-03 06:44] LABS: Basophils # (auto) 0.03 K/uL (0.00-0.20); Basophils % (auto) 0.3 %; Eosinophils # (auto) 0.09 K/uL (0.00-0.50); Eosinophils % (auto) 0.9 %; Hematocrit (blood only) 26.4 % (37.0-47.0); Hemoglobin 8.9 g/dl (12.0-16.0); Immature Granulocytes # (auto) 0.09 K/uL (0.01-0.20); Immature Granulocytes % (auto) 0.9 %; Lymphocytes # (auto) 1.99 K/uL (1.20-3.40); Lymphocytes % (auto) 19.7 %; Mean Corpuscular Hemoglobin 29.5 pg (25.0-34.0); Mean Corpuscular Hgb Conc 33.7 g/dL (32.0-36.0); Mean Corpuscular Volume 87.4 fL (80.0-100.0); Mean Platelet Volume 11.2 fL (9.4-12.4); Monocytes # (auto) 0.97 K/uL (0.11-0.59); Monocytes % (auto) 9.6 %; Neutrophils # (auto) 6.94 K/uL (1.40-6.50); Neutrophils % (auto) 68.6 %; Platelet Count 140 K/uL (130-400); RDW Coefficient of Variation 14.7 % (11.5-14.5); RDW Standard Deviation 46.7 fL (36.4-46.3); Red Blood Count 3.02 M/uL (4.20-5.40); White Blood Count 10.11 K/ul (4.8-10.8)
[2024-11-03] MEDS: FERROUS SULFATE 325 MG TAB PO SCH (08:32)
[2024-11-03] MEDS: MAGNESIUM HYDROXIDE SUSP 30 ML UDC PO PRN (08:32)
[2024-11-03] MEDS: DOCUSATE SODIUM 100 MG CAP PO SCH (08:32)
[2024-11-03] MEDS: PRENATAL VITAMIN 1 TAB PO SCH (08:33)
[2024-11-03] MEDS: IBUPROFEN 600 MG TAB PO SCH (08:33)
[2024-11-03] MEDS ORDERED: KETOROLAC 30 MG/ML VIAL IV PRN (09:02)
[2024-11-03] MEDS: oxyCODONE HCL IR 5 MG TAB (IMMEDIATE RELEASE) PO PRN (12:51)
[2024-11-03] MEDS: bisacodyL 5 MG TABEC PO SCH (19:38)
[2024-11-03 23:25] VITALS: O2SAT 99
[2024-11-04 06:24] LABS: Hematocrit (blood only) 25.2 % (37.0-47.0); Hemoglobin 8.3 g/dl (12.0-16.0)
--- NOTE | 2024-11-04 06:52 | Obstetrical Progress Note ---
Date of Service November 04, 2024 Assessment & Plan (1) state: (2) hemorrhage: (3) S/P : Plan Kasey is a 34yo day 2 s/p repeat for twins, complicated by QBL 2141cc s/p Pit and hemabate. Feels well today, VSS Continue care Encourage ambulation Pain control with ibuprofen as needed Hgb: 8.5 -> 8.9 -> 8.3, sx are mainly shakey and soreness, minimal dizziness/lightheadedness Home today or tomorrow Follow up with Dr. Matias in 6wks Admission and Anticipated Discharge Date Admission Date: November 02, 2024 Supervising Physician Co-Signing Physician Notes Resident Physician Supervision Note: I interviewed and examined the patient. Discussed with Dr. Jameson and agree with findings and plan as documented in the note. Any exceptions or clarifications are listed here: [None] Documented By: Elin Bolivar MD, FACOG Subjective Kasey is a 34yo day 2 s/p repeat for twins, complicated by QBL 2141cc s/p Pit and hemabate. Feeling: okay although some abdominal soreness and shakiness when moving around Ambulation: yes Void: urinating, had small BM last night Gas: yes Lochia:small Diet: tolerating Feeding: bottle Sx: denies other than soreness and shakiness Physical Exam Physical Exam: Constitutional: WD/WN, appearing a bit tired, vitals as above GI/abd: +BS, abdomen soft, fundus somewhat firm palpable 2fw+ umbilicus - low-transverse incision scar: healing well- no erythema, swelling, discharge, or bleeding Ext: no LE edema, calves nontender to palpation, wiggles toes Psychiatric: A&Ox3, euthymic Results & Data Vital Signs (Past 12 Hours) Vital Signs Temp Pulse Resp BP Pulse Ox O2 Del Method 11/03/24 23:24 36.7 C 91 H 16 137/85 99 Room Air 11/03/24 19:37 36.5 C 100 H 16 121/79 98 Room Air Resident Activity Tracking Resident Involvement: Resident Care Provided Care Provided: OB Delivery (2) hemorrhage hemorrhage type: unspecified Qualified Code(s): O72.1 - Other immediate hemorrhage
[2024-11-04] MEDS: CARBOPROST TROMETHAMINE 250 MCG/ML AMPUL IM ONE (07:14)
[2024-11-04 08:20] VITALS: PULSE 103; RESP 20; TEMP 97.7
[2024-11-04] MEDS ORDERED: bisacodyL 10 MG SUPP PR PRN (09:02)
[2024-11-04] MEDS: IBUPROFEN 600 MG TAB PO PRN (09:02)
[2024-11-04 10:42] VITALS: BP 124/82
[2024-11-04] MEDS ORDERED: ACETAMINOPHEN 325 MG TAB PO PRN (15:02)
--- NOTE | 2024-11-06 06:15 | Coding Query ---
CODING QUERY To promote full compliance with coding requirements relating to patient care, provider participation is requested in all cases of certified procedural coder uncertainty. Please assist us with the question(s) below: Coding Question(s): Pt admitted for section & delivery of twin gestation. QBL 2,141 . H/H monitored and Hemabate administered for hemorrhage. Please document, if known or suspected the diagnosis treated / mionitored in regards to the QBL & H/H monitoring . Physician's Response(s): Please send to the physician who documented the above - I was not the primary surgeon on this case. Principal Diagnosis: "that condition established after study, to be chiefly responsible for occasioning the admission of the patient to the hospital for care." Co-Existing Principal Diagnosis: "when two or more diagnoses equally meet the criteria for principal diagnosis as determined by the circumstances of admission, diagnostic work up, and/or therapy provided, and the Alphabetic Index, Tabular List, or another coding guideline does not provide sequencing direction, any one of the diagnoses may be sequenced first." "When the physician has documented what appears to be a current diagnosis in the body of the record, but has not included the diagnosis in the final diagnostic statement, the physician should be asked whether the diagnosis should be added." (Source Coding [facility] 2 QTR90. p3-4) KRISTI
--- NOTE | 2024-11-06 07:13 | Discharge Summary ---
Date of Service November 06, 2024 Admission HPI Per Admitting Provider 34yo @ 38 09/01, di/di twins. Presented to L&D after gush of clear fluid at 2:20a today. Feeling contractions q 8-10 minutes. Scheduled for repeat CS with tubal this morning. and Delivery Plans All Twins *Baby ASA daily start 12-28wks until delivery *Anatomy scan @20wks - @ [facility] 07/02/24 *Serial growth US/S starting @24wks *Wkly NST's @32wks, twice wkly @36wks(nml growth) *Twice wkly NST's @32wks, ICSI or abnml growth *MD visits Q2wks @24wks & Qwk @32wks Twin Del Plan *DI/DI Deliver @38wks GDM on insulin *Wkly NSTs @32wks and Twice wkly @36wks *Serial growth US @28wks *Deliver by [facility] Hypothyroid *Check TFTs Q4wks AMA Previous : Desires BTL - Repeat C/S WITH TUBAL SCHEDULED FOR 11/02/[address] MATIAS AND DR. MENDES ASSIST. Obesity (BMI between 35-39 @ beginning of ) - Covered by Twin protocol Discharge Data Procedures Performed Operation Date: 11/02/24 07:30 Actual Procedures p Section delivery of live female child at 0810 and delivery of live male child at 0811 - Eloisa Matias MD s with Bilateral Tubal Ligation - Eloisa Matias MD Received blood transfusion for symptomatic anemia, hernandez of Hgb 8.3. Hospital Course (1) state: (2) hemorrhage: (3) S/P : Plan Kasey is a 34yo day 2 s/p repeat for twins, complicated by QBL 2141cc s/p Pit and hemabate. Feels well today, VSS Continue care Encourage ambulation Pain control with ibuprofen as needed Hgb: 8.5 -> 8.9 -> 8.3, sx are mainly shakey and soreness, minimal dizziness/lightheadedness Home today or tomorrow Follow up with Dr. Matias in 6wks Supervising Physician Co-Signing Physician Notes Resident Physician Supervision Note: I interviewed and examined the patient. Discussed with Dr. Jameson and agree with findings and plan as documented in the note. Any exceptions or clarifications are listed here: [None] Documented By: Elin Bolivar MD, FACOG Coding Level of Care Code None Diagnoses state Z39.2 hemorrhage, unspecified type O72.1 hemorrhage type: unspecified S/P Z98.891
--- NOTE | 2024-11-07 09:26 | Coding Query ---
CODING QUERY To promote full compliance with coding requirements relating to patient care, provider participation is requested in all cases of medical record coder uncertainty. Please assist us with the question(s) below: Coding Question(s): Pt admitted for section & delivery of twin gestation. QBL 2,141 . H/H monitored and Hemabate administered for hemorrhage. Please document, if known or suspected the diagnosis treated / mionitored in regards to the QBL & H/H monitoring. Thank you ! Norm Kirk [facility] Physician's Response(s): Principal Diagnosis: "that condition established after study, to be chiefly responsible for occasioning the admission of the patient to the hospital for care." Co-Existing Principal Diagnosis: "when two or more diagnoses equally meet the criteria for principal diagnosis as determined by the circumstances of admission, diagnostic work up, and/or therapy provided, and the Alphabetic Index, Tabular List, or another coding guideline does not provide sequencing direction, any one of the diagnoses may be sequenced first." "When the physician has documented what appears to be a current diagnosis in the body of the record, but has not included the diagnosis in the final diagnostic statement, the physician should be asked whether the diagnosis should be added." (Source Coding [facility] 2 QTR90. p3-4) KRISTI
--- NOTE | 2024-11-13 16:06 | Coding Query ---
CODING QUERY To promote full compliance with coding requirements relating to patient care, provider participation is requested in all cases of certified coder uncertainty. Please assist us with the question(s) below: Coding Question(s): Pt admitted for section & delivery of twin gestation. QBL 2,141. H/H monitored and Hemabate administered for hemorrhage. Please document, if known or suspected, the diagnosis treated/mointored in regards to the QBL & H/H monitoring. Thank you . Norm Kirk [facility] Physician's Response(s): hemorrhage Principal Diagnosis: "that condition established after study, to be chiefly responsible for occasioning the admission of the patient to the hospital for care." Co-Existing Principal Diagnosis: "when two or more diagnoses equally meet the criteria for principal diagnosis as determined by the circumstances of admission, diagnostic work up, and/or therapy provided, and the Alphabetic Index, Tabular List, or another coding guideline does not provide sequencing direction, any one of the diagnoses may be sequenced first." "When the physician has documented what appears to be a current diagnosis in the body of the record, but has not included the diagnosis in the final diagnostic statement, the physician should be asked whether the diagnosis should be added." (Source Coding Clinic 2 QTR90. p3-4) KRISTI
== END 2024-11-04 14:00 | disposition home or self-care (01) | DRG 784 ==
LOC: 4S1 03:15 → EDSTATUS 07:30 → 4E2 13:18
PROC: M.PPTLD (2024-11-02 07:30)

== ENCOUNTER 2024-11-18 09:32 | Inpatient (IN) ==
--- NOTE | 2024-11-18 09:49 | Emergency Department Note ---
Impression & Plan Headache, Elevated blood pressure reading, S/P section ED Provider Note CHIEF COMPLAINT: Headache, elevated blood pressure HISTORY OF PRESENTING ILLNESS: This 34-year-old female patient presents to the emergency department for evaluation of a migraine for the past 3 days. Initially the pain was intermittent, but now has been constant for the past 24 hours. The patient is 2 weeks (11/02/24) from a 38-week twin C- section delivery. The patient had a lot of bleeding after delivery and required 2 units of blood. The patient called her OB and was referred to the ER to evaluate for possible preeclampsia. The patient started with right hand and forearm tingling when she was getting the transfusions and has had intermittent symptoms since. She does not have a history of migraines normally. The pain is mostly on the back of her head and skull area, more so on the left now. The patient denies any sinus pain or pressure. No change in her vision. The headache does not resolve when she lays flat. She rates her discomfort a 7/10. She has been taking ibuprofen and Tylenol without improvement of the symptoms. She has also tried caffeine and hydration without improvement. She denies any complications with her spinal for the . She denies any fevers. She denies any cough or URI symptoms. She denies any chest pain or SOB. Has nausea since yesterday, but no vomiting. Denies abdominal pain other than the improving symptoms from her incision that she feels is improving well. She feels like her incision is healing well. She denies any significant swelling in her legs and her swelling continues to improve after delivery. REVIEW OF SYSTEMS: See HPI for pertinent positives and pertinent negatives. ALLERGIES: NKDA MEDICATIONS: Levothyroxine, fluoxetine PAST MEDICAL HISTORY: Depression, hypothyroidism PHYSICAL EXAM: VITALS: Vitals are noted on the nurse's note and reviewed by myself. GENERAL: No acute distress, non-diaphoretic. SKIN: Capillary reflex less than 2 seconds. HEAD: The patient is tender to palpation over the scalp in the posterior aspect especially on the left side. No erythema, edema, or warmth. No step-offs felt. EYES: Pupils equal round and reactive to light and accommodation. Conjunctivae without injection, sclerae without icterus. Extraocular movements intact without pain. No nystagmus. NOSE: Patent, turbinates without inflammation or discharge. No sinus tenderness. No septal hematoma or bleeding. FACE: No facial bone tenderness. Full range of motion of the jaw without tenderness. No facial droop. MOUTH: Mucous membranes moist. Uvula midline. Airway patent. Tongue does not deviate. NECK: Supple without nuchal rigidity. Cervical spine is nontender. No paraspinal muscle tenderness. The pain does not extend into her neck. Full range of motion of the neck without tenderness and normal strength. HEART: Regular rate and rhythm without murmurs gallops or rubs. LUNGS: Clear to auscultation bilaterally without wheezes, rales or rhonchi. No retractions or accessory muscle use. No chest wall tenderness. ABDOMEN: incision site healing well without signs of infection. Positive bowel sounds x 4. Normal tympanic percussion. Soft, nontender to palpation. No masses or hepatosplenomegaly. No guarding or rebound tenderness. No focal RLQ or LLQ tenderness. MUSCULOSKELETAL: Small scab in the area of her spinal, but no evidence for significant erythema, edema, fluctuance, induration, warmth, or signs of infection. No tenderness of the thoracic or lumbar spine or paraspinal muscles. Strength 5/5 and equal bilaterally in the upper and lower extremities. No significant edema of the bilateral lower extremities. No calf tenderness, swelling, erythema, cording, or warmth. Negative Homans' sign. Peripheral pulses 2+ and equal in the bilateral upper and lower extremities. NEURO: Patient was alert and oriented to person place and time. Normal mental status exam. Normal sensation to light and sharp touch. Cerebellar function intact. No focal neurological deficits. DIFFERENTIAL DIAGNOSIS: The differential diagnosis includes preeclampsia, venous sinus thrombosis, migraine, dehydration, acute intracranial bleed, CVA, postural headache, meningitis, encephalitis, mass or mass effect, sinusitis, infection, temporal arteritis, trigeminal neuralgia, pseudotumor cerebri, tension headache, cluster headache, carbon monoxide exposure, migraine, and others. ED COURSE AND MEDICAL DECISION MAKING: MEDICATIONS GIVEN: 1 L normal saline solution bolus. Tylenol 1000 mg IV. Zofran 4 mg IV. Toradol 10 mg IV, Benadryl 50 mg IV. MONITOR: Continuous classroom monitor: Order was placed for continuous classroom monitor. Patient was placed on the classroom monitor and continuous pulse ox. Patient was noted to be in normal sinus rhythm at an initial rate of 88 bpm per my interpretation. EKG: EKG was interpreted by myself as normal sinus rhythm at 81 bpm with no acute ST or T wave changes. INTERPRETATION OF LABS: I interpreted the labs with full lab results as below in the lab section of this note. Laboratory results pertinent to the emergent complaint are discussed in the MDM section below. The patient was advised to follow up with their PCP and/or specialist(s) for further outpatient monitoring and management of any abnormal results. INTERPRETATION OF IMAGING: Imaging studies were interpreted by myself and read by radiology as per the imaging section of this note. The patient was advised to follow up with their PCP and/or specialist(s) for further outpatient management of any non-emergent abnormal findings. Chest x-ray negative for acute cardiopulmonary etiology. CT scan of the head without contrast was negative for acute intracranial abnormalities. EXTERNAL RECORDS REVIEWED: I reviewed the patient's delivery report CHRONIC MEDICAL/SOCIAL CONDITIONS AFFECTING CARE: 2 weeks from C- section delivery of twins. CONSULTATIONS: Dr. Cortes of [facility] MDM SUMMARY: I examined the patient. The patient is 2 weeks from a twin delivery. The patient required 2 units of blood after delivery due to blood loss. She has had a headache for the past 3 days or so that is getting progressively worse. Her blood pressure has also been elevated. She called OB and was advised to come to the ER to rule out preeclampsia. On exam, there are no focal neurologic deficits. She is tender to palpation over the posterior aspect of the scalp especially on the left side. No significant edema of the extremities. Incision site is healing well. Area of the spinal for anesthesia does not show evidence for infection. The headache does not improve with laying flat. An IV lock was placed and labs were drawn. The patient was initially given 1 L normal saline solution bolus, Tylenol 1000 mg IV, and Zofran 4 mg IV. White blood cell count normal at 5.33. Hemoglobin improved to 11.9. Platelet count normal at 368. Coags were normal. CMP normal. Magnesium normal. High- sensitivity troponin normal. Quantitative hCG 2. TSH low at 0.162 with a normal free T4 of 0.82. Urinalysis with trace blood, but otherwise negative with no protein or signs for UTI. Chest x-ray negative for acute cardiopulmonary etiology. CT scan of the head without contrast was negative for acute intracranial abnormalities. The patient only had minimal improvement of her headache with the initial treatment. The patient's blood pressure continued to fluctuate up and down throughout her stay. I spoke with Dr. Cortes of [facility]. She did not recommend any additional imaging at this time. I had ordered IV Toradol and IV Benadryl prior to speaking with Dr. Cortes. She stated that if the patient did not improve with this intervention, the patient would require admission for IV magnesium since she was high risk for developing preeclampsia. After the IV Toradol and IV Benadryl, the patient had an improved, but continued headache. Her blood pressure also continued to fluctuate. The patient's 3 high his blood pressures recorded were 147/96, 154/98, and 155/98. I called Dr. Cortes back to let her know about the patient's continued symptoms. She was agreeable to admit the patient for further evaluation and treatment. Please refer to her dictation for further details. The patient's care was transferred in stable condition. DIAGNOSIS: Headache Elevated blood pressures 2 weeks from twin delivery Past Med/Surg History Problem List (Updated 11/18/24 @ 18:47 by Mayra Benito PA-C) S/P section (Acute) Elevated blood pressure reading (Acute) Headache (Acute) with 35 completed weeks gestation Obesity affecting , antepartum Hypothyroid in , antepartum Elderly multigravida (Unknown) Gestational diabetes Previous delivery affecting , antepartum Subclinical hypothyroidism Class 3 obesity Medical History hemorrhage state Twin Twin Hx of fall (10/12/24) no injuries, seen at [facility] Anemia Hypothyroid in , antepartum Insulin controlled gestational diabetes mellitus (GDM) during insulin at night, has a dexcom 7 monitor History of chicken pox History of gestational diabetes mellitus (GDM) Anxiety and depression Surgical History S/P Hx of section (02/2023) Hx of tympanostomy tubes (2018) have fallen out since S/P tonsillectomy [place] teeth removed Family History Grandmother (Maternal) Breast cancer Other Brain cancer Diabetes Hypertension Kidney disease Ovarian cancer Denies family history of Lung cancer Colorectal cancer Social History Smoking Status: Never smoker Second Hand Exposure: No; Do You Dip or Chew Tobacco: No; Hx Alcohol Use: Yes Hx Substance Use: No Preferred Language: Occitan Communication Ability: Effective 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 Beliefs That Will Affect Care: None, Anabaptism, Spiritual and Cultural marital status: marital status details: Doron [phone] Current Living Situation: Spouse and Family Current Living Situation Comment: and 3 children, 2 cats current occupational status: employed 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, 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 Other Information That Helps Us Care for You: No Feels Safe at Home: Yes Safety Concerns: Feels Safe At This Time caffeine: Yes Dental Care, Regularly: Yes Seatbelt Use: always Sunscreen Use: Yes Assistive Devices: None Allergies Allergies Allergy/AdvReac Type Severity Reaction Status Date / Time No Known Allergies Allergy Verified 10/29/24 10:34 Home Meds Home Medications Medication Instructions Recorded Confirmed ferrous sulfate 325 mg (65 mg 325 mg PO Q OTHER DAY 04/03/23 11/18/24 iron) tablet levothyroxine 100 mcg tablet 100 mcg PO QAM 10/20/24 11/18/24 acetaminophen 500 mg tablet 1,000 mg PO DIRECTED PRN Pain 11/18/24 11/18/24 ibuprofen 600 mg tablet 600 mg PO DIRECTED PRN Pain 11/18/24 11/18/24 oxycodone-acetaminophen 5 mg-325 1 tab PO UD PRN pain 11/18/24 11/18/24 mg tablet (Percocet) Previous Rx's Medication Instructions Recorded oxycodone 5 mg tablet 5 mg PO Q6H PRN pain #12 tabs 11/07/24 fluoxetine 40 mg capsule 40 mg PO QAM #90 caps 11/13/24 Results & Data (ED) Vital Signs Vital Signs - 24 hr 11/18/24 09:40 11/18/24 10:32 11/18/24 11:36 Temperature 36.5 C Temperature Source Temporal Artery Scan Pulse Rate 95 H Pulse Rate [Right Finger] 78 69 Pulse Rhythm [Right Finger] Regular Pulse Strength [Right Finger] Normal Respiratory Rate 18 18 16 Respiratory Effort / Characteristics Non-Labored Spontaneous Non-Labored Spontaneous Non-Labored Spontaneous Respiratory Depth Normal Normal Normal Respiratory Pattern Regular Regular Blood Pressure 147/96 H Blood Pressure [Right Arm] 134/89 154/98 H Blood Pressure Mean 113 Blood Pressure Mean [Right Arm] 104 116 Blood Pressure Position Sitting Blood Pressure Position [Right Arm] Pulse Oximetry 99 94 99 Oxygen Delivery Method Room Air Room Air Room Air Sepsis Recent Fever Within 48 Hours No Sepsis New/Unexplained Change in Mental Status No Sepsis Action Taken by Nursing No Action Required 11/18/24 13:00 11/18/24 14:51 Temperature Temperature Source Pulse Rate Pulse Rate [Right Finger] 70 66 Pulse Rhythm [Right Finger] Regular Regular Pulse Strength [Right Finger] Normal Normal Respiratory Rate 18 18 Respiratory Effort / Characteristics Non-Labored Spontaneous Non-Labored Spontaneous Respiratory Depth Normal Normal Respiratory Pattern Regular Regular Blood Pressure Blood Pressure [Right Arm] 138/90 155/98 H Blood Pressure Mean Blood Pressure Mean [Right Arm] 106 117 Blood Pressure Position Blood Pressure Position [Right Arm] Lying Pulse Oximetry 95 96 Oxygen Delivery Method Room Air Room Air Sepsis Recent Fever Within 48 Hours Sepsis New/Unexplained Change in Mental Status Sepsis Action Taken by Nursing Laboratory Data 11/18/24 10:37 11/18/24 10:37 Lab Results 11/18/24 11/18/24 Range/Units 10:10 10:37 WBC 5.33 (4.8-10.8) K/ul RBC 4.16 L (4.20-5.40) M/uL Hgb 11.9 L (12.0-16.0) g/dl Hct 36.5 L (37.0-47.0) % MCV 87.7 (80.0-100.0) fL MCH 28.6 (25.0-34.0) pg MCHC 32.6 (32.0-36.0) g/dL RDW Std Deviation 45.2 (36.4-46.3) fL RDW Coeff of Deepali 14.0 (11.5-14.5) % Plt Count 368 (130-400) K/uL MPV 9.6 (9.4-12.4) fL Immature Gran % (Auto) 0.4 % Neut % (Auto) 62.8 % Lymph % (Auto) 25.7 % [place] % (Auto) 7.7 % Eos % (Auto) 2.3 % Baso % (Auto) 1.1 % Neut # (Auto) 3.35 (1.40-6.50) K/uL Lymph # (Auto) 1.37 (1.20-3.40) K/uL [place] # (Auto) 0.41 (0.11-0.59) K/uL Eos # (Auto) 0.12 (0.00-0.50) K/uL Baso # (Auto) 0.06 (0.00-0.20) K/uL Immature Gran # (Auto) 0.02 (0.01-0.20) K/uL PT 10.9 (9.0-12.0) Seconds INR 1.0 (0.9-1.1) APTT 25 (21-31) Seconds PTT Ratio 0.9 Sodium 138 (136-145) mmol/L Potassium 4.2 (3.5-5.1) mmol/L Chloride 104 (98-107) mmol/L Carbon Dioxide 29 (21-32) mmol/L Anion Gap 5 (3-11) BUN 17 (6-23) mg/dl Creatinine 0.77 (0.6-1.2) mg/dl Est Cr Clr Drug Dosing 139.1 ml/min eGFR 102.46 BUN/Creatinine Ratio 22.1 H (10-20) Glucose 91 (70-99(Fasting)) mg/dl Calcium 9.2 (8.6-10.3) mg/dl Magnesium 1.9 (1.7-2.4) mg/dl Total Bilirubin 0.5 (0.2-1.0) mg/dl AST 20 (13-39) U/L ALT 18 (7-52) U/L Alkaline Phosphatase 83 (34-104) U/L Troponin I High Sens 2.9 (0-14) pg/ml Total Protein 7.0 (6.0-8.3) gm/dl Albumin 3.9 (3.4-5.0) gm/dl Globulin 3.1 (2.5-4.0) gm/dl Albumin/Globulin Ratio 1.3 (0.9-2) Lipase 23 (11-82) U/L TSH 0.162 L (0.300-4.500) uIu/ml Free T4 0.82 (0.61-1.60) ng/dl HCG, Quant 2 mIU/ml Urine Color Yellow Urine Appearance Clear (Clear) Urine pH 6.5 (4.5-7.5) Ur Specific Shorter 1.016 (1.000-1.030) Urine Protein Negative (Negative) Urine Glucose (UA) Negative (Negative) Urine Ketones Negative (Negative) Urine Blood Trace H (Negative) Urine Nitrite Negative (Negative) Urine Bilirubin Negative (Negative) Urine Urobilinogen Negative (Negative) Ur Leukocyte Esterase Negative (Negative) Urine WBC (Auto) 0-5 (0-5) /hpf Urine RBC (Auto) 0-2 (0-2) /hpf U Hyaline Cast (Auto) 0-2 (0-2) /lpf U Epithel Cells (Auto) 0-2 (0-2) /hpf Urine Bacteria (Auto) None Seen (None Seen) Administered Medications Magnesium Sulfate (Magnesium Sulfate / Wtr) 40 gm in 1,000 mls @ 50 mls/hr IV .Q20H MADHU Stop: 12/18/24 14:14 Last Admin: 11/18/24 15:43 Dose: 50 mls/hr Documented By: SHIRA Co-signed By: ALAINA Lactated Ringer's (Lr) 1,000 mls @ 125 mls/hr IV .Q8H PRN; Protocol PRN Reason: L&D Protocol Stop: 11/19/24 14:05 Last Admin: 11/18/24 15:42 Dose: 75 mls/hr Documented By: SHIRA Ibuprofen (Ibuprofen 600 Mg Tab) 600 mg PO Q6H PRN PRN Reason: Pain Stop: 12/18/24 14:06 Last Admin: 11/18/24 16:49 Dose: 600 mg Documented By: SHIRA Oxycodone HCl (Oxycodone Hcl Ir 5 Mg Tab (Immediate Release)) 5 mg PO Q6H PRN PRN Reason: pain Stop: 12/02/24 14:06 Last Admin: 11/18/24 18:28 Dose: 5 mg Documented By: SHIRA Discontinued Medications Diphenhydramine HCl (Diphenhydramine 50 Mg/Ml Vial) 50 mg IV NOW STA Stop: 11/18/24 12:12 Last Admin: 11/18/24 12:26 Dose: 50 mg Documented By: KELLEY Sodium Chloride (Nss) 1,000 mls @ 999 mls/hr IV .Q1H1M ONE Stop: 11/18/24 11:01 Last Infusion: 11/18/24 12:03 Dose: Infused Documented By: Admin: 11/18/24 10:42 Dose: 999 mls/hr Documented By: MR Acetaminophen (Ofirmev) 1,000 mg in 100 mls @ 400 mls/hr IV NOW STA Stop: 11/18/24 10:15 Last Infusion: 11/18/24 12:03 Dose: Infused Documented By: Admin: 11/18/24 10:43 Dose: 400 mls/hr Documented By: MR Ketorolac Tromethamine (Ketorolac Tromethamine 15 Mg/Ml Vial) 10 mg IV NOW ONE Stop: 11/18/24 12:12 Last Admin: 11/18/24 12:25 Dose: 10 mg Documented By: KELLEY Magnesium Sulfate (Mag Sulfate 4gm Bolus From Bag) 4 gm IV ONE ONE Stop: 11/18/24 14:04 Last Admin: 11/18/24 15:49 Dose: 4 gm Documented By: SHIRA Co-signed By: ALAINA Ondansetron HCl (Ondansetron Inj 2 Mg/Ml 2 Ml Vial) 4 mg IV NOW STA Stop: 11/18/24 10:02 Last Admin: 11/18/24 10:42 Dose: 4 mg Documented By: MR Imaging Data Radiologist's Impression: Chest X-Ray 11/18/24 10:01 XR chest 1V portable CLINICAL HISTORY: Chest pain, nonspecific COMPARISON STUDY: None FINDINGS: Heart size and pulmonary vasculature are normal. No effusion, consolidation, or pneumothorax. IMPRESSION: No acute findings. ACT 112: Negative or not required by law. Electronically signed by: Tarik Lino M.D. 11/18/2024 11:[address] 11/18/24 10:01 CT head/brain wo con CLINICAL HISTORY: 34 years-old Female with Headache, HTN, post . Acute headache TECHNIQUE: Multiple axial CT images of the head were obtained without contrast. A dose lowering technique was utilized adhering to the principles of ALARA. CT DOSE: 625.8 mGy.cm COMPARISON: None. FINDINGS: No acute intracranial hemorrhage, midline shift, intracranial mass, hydrocephalus, territorial ischemia or abnormal extra-axial collection. The calvarium is intact. The paranasal sinuses, mastoid air cells, and middle ear cavities are clear. IMPRESSION: No acute intracranial abnormality. ACT 112: Negative or not required by law. The above report was generated using voice recognition software. It may contain grammatical, syntax or spelling errors. Electronically signed by: Silvano Vergara M.D. 11/18/2024 11:30 AM Discharge Plan Visit Data Chief Complaint: Referred by Doctor Stated Complaint: OB EVAL- PP ECLAMPSIA/MIGRAINE ED Provider: Kalen Linder ED Midlevel Provider: Mayra Benito Discharge Problem: Headache, Elevated blood pressure reading, S/P section Patient Disposition: Admitted As Inpatient Condition: Good Discharge Instructions Interventions: ED Discharge Assessment Last Done: 11/18/24 14:56 Discharge Problem: Headache Qualifiers: Headache type: unspecified Headache chronicity pattern: acute headache I ntractability: intractable Qualified Code(s): R51.9 - Headache, unspecified
[2024-11-18] MEDS: ONDANSETRON INJ 2 MG/ML 2 ML VIAL IV STA (10:42)
[2024-11-18] MEDS: SODIUM CHLORIDE 0.9% 1,000 ML IV ONE (10:42)
[2024-11-18] MEDS: ACETAMINOPHEN 1,000 MG/100 ML VIAL IV STA (10:43)
[2024-11-18 10:45] LABS: Appearance Urine Clear (Clear); Bacteria Urine Automated None Seen (None Seen); Bilirubin Urine Negative (Negative); Blood Urine Trace (Negative); Cast Urine Automated 0-2 /lpf (0-2); Color Urine Yellow; Epithelial Cell Urine Auto 0-2 /hpf (0-2); Glucose Urine UA Negative (Negative); Ketones Urine Negative (Negative); Leukocyte Esterase Urine Negative (Negative); Nitrite Urine Negative (Negative); Protein Urine Negative (Negative); RBC Urine Automated 0-2 /hpf (0-2); Specific Gravity Urine 1.016 (1.000-1.030); Urobilinogen Urine Negative (Negative); WBC Urine Automated 0-5 /hpf (0-5); pH Urine 6.5 (4.5-7.5)
[2024-11-18 11:06] LABS: Basophils # (auto) 0.06 K/uL (0.00-0.20); Basophils % (auto) 1.1 %; Eosinophils # (auto) 0.12 K/uL (0.00-0.50); Eosinophils % (auto) 2.3 %; Hematocrit (blood only) 36.5 % (37.0-47.0); Hemoglobin 11.9 g/dl (12.0-16.0); Immature Granulocytes # (auto) 0.02 K/uL (0.01-0.20); Immature Granulocytes % (auto) 0.4 %; Lymphocytes # (auto) 1.37 K/uL (1.20-3.40); Lymphocytes % (auto) 25.7 %; Mean Corpuscular Hemoglobin 28.6 pg (25.0-34.0); Mean Corpuscular Hgb Conc 32.6 g/dL (32.0-36.0); Mean Corpuscular Volume 87.7 fL (80.0-100.0); Mean Platelet Volume 9.6 fL (9.4-12.4); Monocytes # (auto) 0.41 K/uL (0.11-0.59); Monocytes % (auto) 7.7 %; Neutrophils # (auto) 3.35 K/uL (1.40-6.50); Neutrophils % (auto) 62.8 %; Platelet Count 368 K/uL (130-400); RDW Standard Deviation 45.2 fL (36.4-46.3); Red Blood Count 4.16 M/uL (4.20-5.40); White Blood Count 5.33 K/ul (4.8-10.8)
--- NOTE | 2024-11-18 11:12 | XRay Report ---
XR chest 1V portable CLINICAL HISTORY: Chest pain, nonspecific COMPARISON STUDY: None FINDINGS: Heart size and pulmonary vasculature are normal. No effusion, consolidation, or pneumothora x. IMPRESSION: No acute findings. ACT 112: Negative or not required by law. Electronically signed by: Tarik Lino M.D. 11/18/2024 11:10 AM
[2024-11-18 11:15] LABS: Albumin Globulin Ratio 1.3 (0.9-2); Albumin Level 3.9 gm/dl (3.4-5.0); BUN Creatinine Ratio 22.1 (10-20); Bilirubin,Total 0.5 mg/dl (0.2-1.0); Calcium 9.2 mg/dl (8.6-10.3); Creatinine Clr Calc Pharmacy 139.1 ml/min; Globulin 3.1 gm/dl (2.5-4.0); Magnesium 1.9 mg/dl (1.7-2.4); Potassium 4.2 mmol/L (3.5-5.1)
[2024-11-18 11:20] LABS: Troponin I High Sensitivity 2.9 pg/ml (0-14)
[2024-11-18 11:27] LABS: Thyroid Stimulating Hormone 0.162 uIu/ml (0.300-4.500)
[2024-11-18 11:30] LABS: Partial Thromboplastin Ratio 0.9; Partial Thromboplastin Time 25 Seconds (21-31); Prothrombin Time 10.9 Seconds (9.0-12.0)
--- NOTE | 2024-11-18 11:31 | CT Scan Report ---
CT head/brain wo con CLINICAL HISTORY: 34 years-old Female with Headache, HTN, post . Acute headache TECHNIQUE: Multiple axial CT images of the head were obtained without contrast. A dose lowering tech nique was utilized adhering to the principles of ALARA. CT DOSE: 625.8 mGy.cm COMPARISON: None. FINDINGS: No acute intracranial hemorrhage, midline shift, intracranial mass, hydrocephalus, territorial ischem ia or abnormal extra-axial collection. The calvarium is intact. The paranasal sinuses, mastoid air cells, and middle ear cavities are clear . IMPRESSION: No acute intracranial abnormality. ACT 112: Negative or not required by law. The above report was generated using voice recognition software. It may contain grammatical, syntax o r spelling errors. Electronically signed by: Silvano Vergara M.D. 11/18/2024 11:30 AM
[2024-11-18 12:21] LABS: T4 Free Thyroxine 0.82 ng/dl (0.61-1.60)
[2024-11-18] MEDS: KETOROLAC TROMETHAMINE 15 MG/ML VIAL IV ONE (12:25)
[2024-11-18] MEDS: diphenhydrAMINE 50 MG/ML VIAL IV STA (12:26)
[2024-11-18] MEDS ORDERED: ACETAMINOPHEN 500 MG TAB PO PRN (14:07)
[2024-11-18] MEDS ORDERED: IBUPROFEN 600 MG TAB PO PRN (14:07)
[2024-11-18] MEDS: LACTATED RINGER'S 1,000 ML IV PRN (15:42)
[2024-11-18] MEDS: MAGNESIUM SULFATE / WTR 40 GM/1,000 ML BAG IV SCH (15:43)
[2024-11-18] MEDS: MAG SULFATE 4GM BOLUS FROM BAG IV ONE (15:49)
--- NOTE | 2024-11-18 16:04 | History & Physical Report ---
Date of Service November 18, 2024 Assessment & Plan (1) Pre-eclampsia, : Plan: Status post section for twin gestation on 11/02/2024 now presents with intractable headache and elevated blood pressures in the emergency room. All labs are normal but we will start magnesium sulfate prophylaxis for 24 hours and treat her headaches as needed. Admission and Anticipated Discharge Date Admission Date: November 18, 2024 History of Present Illness Chief Complaint: Intractable headache Status post repeat section on 11/02/2024 Primary Care Provider: Emy Miller MD Patient is a 34-year-old 2 para 2-0-0-3 female who was delivered of 38- week twins on 11/02/2024. Her admission was complicated by hemorrhage because of uterine atony. She did receive blood transfusion as a result. She was sent home in good condition but began to have a headache that would come and go starting approximately 1 week ago. The headache is gone more persistent over the last couple of days. She has tried heat and her pain medications both narcotics and nonsteroidal medications and the headache is not resolved. The headaches seem to be on the left side of her head starts at the occipital area and comes up the back of her head. It does not go away completely when she lies flat. She has noticed minimal visual changes although if she moves too quickly she sees bright lights on occasion. Because of the persistence of the headache not responding to pain meds she presented to the emergency room. She was given IV Toradol and IV Tylenol and the headache has not lessened. BP on initial evaluation was 150/96 and remained elevated intermittently for the next for blood pressure checks. All PIH labs are within normal limits. She denies any other PIH symptoms. She did have an increase in bleeding several days ago and passed several clots but now the bleeding has subsided. She is not breast- feeding. Because of the persistence of the headache and the elevated pressures which have been higher than during her prior admission for her section and we will begin magnesium sulfate prophylaxis. Allergies Allergy/AdvReac Type Severity Reaction Status Date / Time No Known Allergies Allergy Verified 10/29/24 10:34 Home Medications Medication Instructions Recorded Confirmed Type ferrous sulfate 325 mg (65 mg 325 mg PO Q OTHER DAY 04/03/23 11/18/24 History iron) tablet levothyroxine 100 mcg tablet 100 mcg PO QAM 10/20/24 11/18/24 History oxycodone 5 mg tablet 5 mg PO Q6H PRN pain #12 tabs 11/07/24 11/18/24 Rx fluoxetine 40 mg capsule 40 mg PO QAM #90 caps 11/13/24 11/18/24 Rx acetaminophen 500 mg tablet 1,000 mg PO DIRECTED PRN Pain 11/18/24 11/18/24 History ibuprofen 600 mg tablet 600 mg PO DIRECTED PRN Pain 11/18/24 11/18/24 History oxycodone-acetaminophen 5 mg-325 1 tab PO UD PRN pain 11/18/24 11/18/24 History mg tablet (Percocet) Patient History Medical History hemorrhage state Twin Twin Hx of fall (10/12/24) no injuries, seen at [facility] Anemia Hypothyroid in , antepartum Insulin controlled gestational diabetes mellitus (GDM) during insulin at night, has a dexcom 7 monitor History of chicken pox History of gestational diabetes mellitus (GDM) Anxiety and depression Surgical History S/P Hx of section (02/2023) Hx of tympanostomy tubes (2018) have fallen out since S/P tonsillectomy [place] teeth removed Family History Grandmother (Maternal) Breast cancer Other Brain cancer Diabetes Hypertension Kidney disease Ovarian cancer Denies family history of Lung cancer Colorectal cancer Social History Smoking Status: Never smoker Second Hand Exposure: No; Do You Dip or Chew Tobacco: No; Hx Alcohol Use: Yes Hx Substance Use: No Preferred Language: Welsh Communication Ability: Effective Police Worker Required: No Beliefs That Will Affect Care: None, Rastafarian, Spiritual and Cultural marital status: marital status details: Doron ([phone]) [phone] Current Living Situation: Spouse and Family Current Living Situation Comment: and 3 children, 2 cats current occupational status: employed 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 steristrips still in place. no erythema or induration. Neurologic: patellar DTR's are normal trace pedal edema Psychiatric: A+Ox3, euthymic affect Results & Data Vital Signs (Past 12 Hours) Vital Signs Temp Pulse Pulse Resp BP BP Pulse Ox 11/18/24 15:56 83 93 11/18/24 15:54 83 99 11/18/24 15:49 88 99 11/18/24 15:47 90 134/80 11/18/24 15:44 78 100 11/18/24 15:39 74 98 11/18/24 15:34 78 99 11/18/24 15:29 77 97 11/18/24 15:27 74 134/81 11/18/24 14:51 66 18 155/98 H 96 11/18/24 13:00 70 18 138/90 95 11/18/24 11:36 69 16 154/98 H 99 11/18/24 10:32 78 18 134/89 94 11/18/24 09:40 97.7 F 95 H 18 147/96 H 99 O2 Del Method 11/18/24 15:56 11/18/24 15:54 11/18/24 15:49 11/18/24 15:47 11/18/24 15:44 11/18/24 15:39 11/18/24 15:34 11/18/24 15:29 11/18/24 15:27 11/18/24 14:51 Room Air 11/18/24 13:00 Room Air 11/18/24 11:36 Room Air 11/18/24 10:32 Room Air 11/18/24 09:40 Room Air Coding Level of Care Code 75763 INT INP/OBS CARE 1/40MIN Diagnoses Pre-eclampsia, O14.95
[2024-11-18] MEDS: IBUPROFEN 600 MG TAB PO PRN (16:49)
[2024-11-18] MEDS: oxyCODONE HCL IR 5 MG TAB (IMMEDIATE RELEASE) PO PRN (18:28)
[2024-11-19] MEDS: LEVOTHYROXINE SODIUM 100 MCG TABLET PO SCH (06:53)
[2024-11-19 07:50] LABS: Basophils # (auto) 0.05 K/uL (0.00-0.20); Basophils % (auto) 0.9 %; Eosinophils # (auto) 0.16 K/uL (0.00-0.50); Hematocrit (blood only) 33.7 % (37.0-47.0); Hemoglobin 10.8 g/dl (12.0-16.0); Immature Granulocytes # (auto) 0.02 K/uL (0.01-0.20); Immature Granulocytes % (auto) 0.4 %; Lymphocytes # (auto) 1.13 K/uL (1.20-3.40); Lymphocytes % (auto) 21.4 %; Mean Corpuscular Hemoglobin 28.5 pg (25.0-34.0); Mean Corpuscular Volume 88.9 fL (80.0-100.0); Mean Platelet Volume 9.6 fL (9.4-12.4); Monocytes # (auto) 0.54 K/uL (0.11-0.59); Monocytes % (auto) 10.2 %; Neutrophils # (auto) 3.37 K/uL (1.40-6.50); Neutrophils % (auto) 64.1 %; Platelet Count 324 K/uL (130-400); RDW Coefficient of Variation 14.3 % (11.5-14.5); RDW Standard Deviation 46.3 fL (36.4-46.3); Red Blood Count 3.79 M/uL (4.20-5.40); White Blood Count 5.27 K/ul (4.8-10.8)
[2024-11-19 08:11] LABS: Albumin Globulin Ratio 1.3 (0.9-2); Albumin Level 3.5 gm/dl (3.4-5.0); BUN Creatinine Ratio 15.8 (10-20); Bilirubin,Total 0.2 mg/dl (0.2-1.0); Creatinine Clr Calc Pharmacy 140.4 ml/min; Globulin 2.8 gm/dl (2.5-4.0); Potassium 4.2 mmol/L (3.5-5.1); Total Protein 6.3 gm/dl (6.0-8.3)
--- NOTE | 2024-11-19 08:20 | Obstetrical Progress Note ---
Date of Service November 19, 2024 Assessment & Plan (1) Pre-eclampsia, : Plan: BP's have normalized but headache continues. I suspect this may be a tension headache so will add Fioricet to her meds continue MgSO4 until 4:30 pm today. Admission and Anticipated Discharge Date Admission Date: November 18, 2024 Subjective still has headache whcich now seems to be centered in the left side of her neck to the occipital area. oxycodone and NSAID's help alittle but heat is helping more. no bleeding and incision pain is under control. no PIH symptoms except the headache. Review of Systems Review of Systems: All systems reviewed & are unremarkable except as noted in HPI & below Physical Exam Constitutional: WD/WN, vitals as above Gastrointestinal (Abdomen): incision intact and dry Neurologic: DTR's are normal Psychiatric: A+Ox3, euthymic affect Results & Data Vital Signs (Past 12 Hours) Vital Signs Temp Pulse Resp BP Pulse Ox 11/19/24 08:14 81 95 11/19/24 08:04 84 97 11/19/24 07:54 87 99 11/19/24 07:48 88 134/63 11/19/24 07:44 86 99 11/19/24 07:34 94 H 99 11/19/24 07:24 79 91 11/19/24 07:14 88 94 11/19/24 07:04 80 92 11/19/24 07:00 18 11/19/24 07:00 98.1 F 18 11/19/24 06:54 90 98 11/19/24 06:51 83 87 L 11/19/24 06:47 81 118/66 11/19/24 06:44 80 94 11/19/24 06:34 79 92 11/19/24 06:24 82 92 11/19/24 06:20 16 11/19/24 06:14 83 92 11/19/24 06:04 76 94 11/19/24 05:54 75 95 11/19/24 05:47 72 113/63 11/19/24 05:44 88 95 11/19/24 05:34 75 96 11/19/24 05:24 81 96 11/19/24 05:14 92 H 99 11/19/24 05:08 18 11/19/24 05:04 95 H 96 11/19/24 04:54 77 88 L 11/19/24 04:53 84 85 L 11/19/24 04:47 83 119/63 11/19/24 04:45 79 84 L 11/19/24 04:44 77 91 11/19/24 04:37 82 85 L 11/19/24 04:34 79 90 11/19/24 04:32 83 85 L 11/19/24 04:24 75 94 11/19/24 04:15 16 11/19/24 04:15 16 11/19/24 04:14 79 92 11/19/24 04:04 79 94 11/19/24 03:54 74 91 11/19/24 03:47 75 101/59 L 11/19/24 03:44 81 92 11/19/24 03:34 68 93 11/19/24 03:27 98.2 F 11/19/24 03:27 16 11/19/24 03:24 79 92 11/19/24 03:14 75 92 11/19/24 03:04 77 91 11/19/24 02:56 88 86 L 11/19/24 02:54 75 93 11/19/24 02:47 80 107/61 11/19/24 02:44 78 93 11/19/24 02:34 77 93 11/19/24 02:24 73 94 11/19/24 02:15 14 11/19/24 02:14 72 93 11/19/24 02:04 73 93 11/19/24 01:54 80 94 11/19/24 01:47 72 127/66 11/19/24 01:44 84 94 11/19/24 01:35 72 86 L 11/19/24 01:34 80 90 11/19/24 01:24 77 95 11/19/24 01:16 14 11/19/24 01:14 79 94 11/19/24 01:04 75 98 11/19/24 01:01 90 86 L 11/19/24 00:54 73 92 11/19/24 00:47 74 108/60 11/19/24 00:44 75 91 11/19/24 00:34 72 93 11/19/24 00:24 77 91 11/19/24 00:17 16 11/19/24 00:14 72 92 11/19/24 00:04 72 92 11/18/24 23:54 92 11/18/24 23:54 72 11/18/24 23:47 71 11/18/24 23:47 108/57 L 11/18/24 23:44 94 11/18/24 23:44 78 11/18/24 23:34 92 11/18/24 23:34 77 11/18/24 23:24 98 11/18/24 23:24 84 11/18/24 23:20 16 11/18/24 23:14 96 11/18/24 23:14 85 11/18/24 23:04 92 11/18/24 23:04 98.1 F 77 16 11/18/24 22:54 91 11/18/24 22:54 79 11/18/24 22:47 74 11/18/24 22:47 118/64 11/18/24 22:44 92 11/18/24 22:44 75 11/18/24 22:34 94 11/18/24 22:34 90 11/18/24 22:24 91 11/18/24 22:24 77 11/18/24 22:14 89 L 11/18/24 22:14 76 11/18/24 22:07 16 11/18/24 22:04 90 11/18/24 22:04 82 11/18/24 21:54 90 11/18/24 21:54 75 11/18/24 21:47 77 11/18/24 21:47 121/65 11/18/24 21:45 87 L 11/18/24 21:45 80 11/18/24 21:44 88 L 11/18/24 21:44 78 11/18/24 21:40 86 L 11/18/24 21:40 80 11/18/24 21:34 87 L 11/18/24 21:34 78 11/18/24 21:29 87 L 11/18/24 21:29 80 11/18/24 21:24 89 L 11/18/24 21:24 79 11/18/24 21:14 92 11/18/24 21:14 76 11/18/24 21:04 95 11/18/24 21:04 81 11/18/24 21:03 16 11/18/24 20:59 89 L 11/18/24 20:59 78 11/18/24 20:54 92 11/18/24 20:54 75 11/18/24 20:54 91 11/18/24 20:54 74 11/18/24 20:48 90 11/18/24 20:48 83 11/18/24 20:47 75 11/18/24 20:47 121/62 11/18/24 20:44 97 11/18/24 20:44 70 11/18/24 20:41 90 11/18/24 20:41 78 11/18/24 20:34 95 11/18/24 20:34 74 11/18/24 20:25 90 11/18/24 20:25 78 11/18/24 20:24 92 11/18/24 20:24 77 11/18/24 20:20 89 L 11/18/24 20:20 79 PG Care Time/CCT Total # of Minutes Spent Total Time Spent with Patient: Total time spent is greater than 50% in coordination of care (as documented) at patient's floor/unit and/or counseling patient: Coding Level of Care Code 47716 SUB INP/OBS CARE 09/19MIN Diagnoses Pre-eclampsia, O14.95
[2024-11-19] MEDS: BUTALBITAL/ACETAMIN/CAFFEINE TAB PO PRN (08:37)
[2024-11-19] MEDS: FLUoxetine HCL 20 MG CAP PO SCH (08:38)
--- NOTE | 2024-11-19 12:04 | Electrocardiogram Report ---
Test Reason : Blood Pressure : */* mmHG Vent. Rate : 81 BPM Atrial Rate : 81 BPM P-R Int : 154 ms QRS Dur : 86 ms QT Int : 378 ms P-R-T Axes : 15 -4 41 degrees QTcB Int : 439 ms Normal sinus rhythm Poor R wave progression, consider anterior SC vs. lead placement vs. LVH Abnormal ECG No previous ECGs available Confirmed by Sachin Sy ([id number]) on 11/19/2024 12:03:39 PM Referred By: REFERRED SELF Confirmed By: Sachin Sy
[2024-11-19] MEDS ORDERED: methylPREDNISolone 125 MG/2 ML VIAL IV STA (14:32)
--- NOTE | 2024-11-19 14:55 | Communication Note ---
Date of Service: November 19, 2024 I was called by DARIN Juarez to come to bedside. Patient tearful with pain of CONROY, now 8/10 worst of her life, very frustrated and frightened. S: Patient states CONROY has not improved, and that fioricet given this morning initially felt like it was starting to help but CONROY now worse than it was on admission. It remains L occiptal, spreading over top of head. She did not find that magnesium improved it, nor did NSAID + oxycodone, which is ordered for her here but was also what she tried at home prior to readmission. She does not have other symptoms/complaints besides the CONROY. O: Vitals show normal BP, reassuring PIH labs. Generally: Alert, somewhat anxious but not crying, she is speaking fluidly, and she is sitting upright with legs off the bed facing her windows in room 422. Seen to adjust her position and move all 4 extremities during our conversation. Lungs: Resp effort normal, resp rate normal / nonsuppressed. Ext: Minimal edema bilateral LE's, DTR 1+ A/P: Intractable headache without other s/sx neurologic irritability. It is unclear if she truly has preeclampsia given labs and quick resolution of elevated BP that was briefly seen in ER, but she met the diagnosis, and I am reluctant to stop magnesium until her CONROY is addressed if possible via the consultations I'm adding now. (It will have to be held briefly to allow for admin of steroid, however, due to IV incompatibility.) I spoke with neurology consumer safety officer (Julio) and Anesthesia consumer safety officer (Tigist) as soon as I was aware of her worsening CONROY. Neurology requested 250mg IV solumedrol x1 and a noncon Head CT. I then realized the patient had a noncon head CT yesterday in ER which was read as normal, so am awaiting instruction from neurology as to whether they would like repeat or additional imaging.
[2024-11-19] MEDS: methylPREDNISolone 250 MG in DEXTROSE 5% 100 ML IV STA (15:00)
[2024-11-19 16:48] VITALS: O2SAT 94
[2024-11-19] MEDS ORDERED: SODIUM CHLORIDE 0.9% IV ONE (18:45)
[2024-11-19] MEDS ORDERED: COSYNTROPIN IV ONE (18:45)
--- NOTE | 2024-11-19 18:56 | Communication Note ---
Date of Service: November 19, 2024 Please see ER records and OB service notes regarding patient's hospital course thus far. I was asked to evaluate patient regarding her headache. Patient stated the headache first started a few days after she was discharged from the hospital (had elective C section for twins and received a spinal block, spinal block was done on one attempt and was uncomplicated using a 24G Sprotte spinal needle). The headache appeared to wax and wane and she first attributed it to being tired. She stated a few days went by with minimal pain but then earlier this week the headache returned and was very severe in nature. She was unable to obtain relief with home remedies and she presented to the ER. She had already been hydrating and consuming caffeinated beverages. The headache was primarily located in her neck and left side of her head. Of note, she did not endorse any significant change with position. When speaking with the patient, she was sitting upright in bed comfortably and was quite conversant. Neurology had already been consulted and patient had earlier received a large dose of Solu- Medrol and some pain medication. She stated her headache was very minimal at the time of me seeing the patient. We had a long discussion about the possibility that this could be a post-spinal headache although the timing is rather unusual and the lack of position change at least warrants a workup for an alternate explanation. We discussed conservative therapy for spinal headaches (if in fact this would be the case) as she is to continue hydrating and taking Fioricet as prescribed. I also wrote for a one time 500mcg dose of cosyntropin IV as this is used in our [facility] protocol. The patient is to see if her headache intensity changes with position and if her headache returns or worsens, she is aware we could offer her an epidural blood patch. The epidural blood patch procedure was explained in detail and she knows even if she is discharged home she can always return to ER and we can evaluate and potentially do the procedure there if indicated. All questions were answered.
[2024-11-19] MEDS: LABETALOL HCL 100 MG TAB PO SCH (20:15)
[2024-11-20] MEDS: ACETAMINOPHEN 500 MG TAB PO PRN (02:08)
--- NOTE | 2024-11-20 07:11 | Obstetrical Progress Note ---
Date of Service November 20, 2024 Assessment & Plan (1) Pre-eclampsia, : Patient readmitted for elevated BP and headache (severe preeclampsia). S/P Magnesium x 24 hours. Patient normotensive currently on Labetalol 100mg PO BID, which should continue. CONROY severity spiked yesterday to a severe level. This occurred shortly after a dose of fioricet which briefly helped then seemed to exacerbate the pain. Discussed possible rebound CONROY, which may have been a factor even prior to admission given at-home use of oxycodone for postop pain. Advised to avoid further narcotic which patient states is fine, no longer needed for incisional pain at all. Anesthesia consult completed, Neurology consult ordered stat and provider to provider communication occurred yesterday but no neurologist has been to see the patient at this point. We did give solumedrol IV at their direction which seemed to improve the CONROY greatly. Given patient improvement I no longer feel concerned that we require their input, and will discontinue the consult and discharge the patient home at this time. Subjective Patient without CONROY this morning, feels much better. Looking forward to going home. Physical Exam Constitutional WD/WN, vitals as above Eyes PERRL, conjunctivae normal, anicteric sclerae ENMT external ear and nose normal, oropharynx normal Neck supple Respiratory normal respiratory effort and able to speak in complete sentences; no respiratory distress Cardiovascular Rate/Rhythm: regular rate and regular rhythm Gastrointestinal (Abdomen) Postgravid and obese, incision c/d/i with surgical glue Musculoskeletal no cyanosis or clubbing, extremities motor strength 5/5 Skin no rashes, warm and dry Neurologic patellar DTR's 2+ bilat, sensation intact Psychiatric A+Ox3, euthymic affect Results & Data Vital Signs (Past 12 Hours) Vital Signs Temp Pulse Resp BP 11/20/24 05:42 95 H 120/72 11/20/24 03:42 93 H 131/67 11/20/24 02:15 97.9 F 16 11/20/24 01:42 100 H 119/71 11/19/24 23:42 95 H 108/58 L 11/19/24 21:42 98.2 F 18 11/19/24 21:42 90 133/80 11/19/24 20:14 92 H 139/81 11/19/24 19:15 99.0 F 18
[2024-11-20 07:15] VITALS: RESP 18; TEMP 98.4
[2024-11-20 09:56] VITALS: BP 139/76; PULSE 96
== END 2024-11-20 10:00 | disposition home or self-care (01) | DRG 776 ==
LOC: ED 09:32 → 4S1 14:56